=== PATIENT | female | born 1935 | race Hispanic/Latino ===

== ENCOUNTER → 2018-01-09 | Outpatient (CLI) | payer OTHER ==
--- NOTE | 2018-01-10 15:13 | Diagnostic Imaging Report ---
#[id number] - MGSCRBIL #BILATERAL DIGITAL SCREENING MAMMOGRAM WITH CAD: 01/09/2018 CLINICAL: Routine screening. Comparison is made to exam dated: 09/24/2014 mammogram - [facility]. Current study contains 4 films. The tissue of both breasts is heterogeneously dense. This may lower the sensitivity of mammography. Current study was also evaluated with a Computer Aided Detection (CAD) system. There are benign vascular calcifications and scattered benign calcifications in both breasts. No significant masses, calcifications or other findings are seen in either breast. There has been no significant interval change. IMPRESSION: BENIGN There is no mammographic evidence of malignancy. A 1 year screening mammogram is recommended. The patient will be notified by letter of the results. Bert Guido Jr., D.O. cw/:01/10/2018 10:42:42 Debt Counselor: Ana RAYA(R)(M), [facility] letter sent: Compared to Prior B9 Mammogram BI-RADS: 2 Benign
== END ==
LOC: MAMMO 07:53
PROVIDERS: ATTEND Internal Medicine
DX: Z12.31 Encounter for screening mammogram for malignant neoplasm of breast (principal)
CPT/HCPCS: 77067

== ENCOUNTER → 2019-02-12 | Outpatient (CLI) | payer MEDICARE, OTHER ==
[~2019-02-12] MED LIST: ASPIR 8181 MG PO; CLOPIDOGREL75 MG PO; GABAPENTIN100 MG PO; GLUCOSAMINE1000 MG PO; METFORMIN HCL1000 MG PO; METOLAZONE5 MG PO; MICARDIS40 MG PO; RESTASIS1 EACH OU; SIMVASTATIN40 MG PO; SPIRONOLACTONE25 MG PO; VITAMIN C500 MG PO
--- NOTE | 2019-02-13 17:02 | Diagnostic Imaging Report ---
Exam: Bone mineral density study. History: Osteoporosis, screening, calcium supplementation, history of surgery Comparison: September 24, 2014 Discussion: Evaluation of the left hip and lumbar spine was performed. The study is technically adequate. The patient's fracture risk is compared to an age-matched control. The patient denies prior surgery/fracture of the spine, hips or forearm. Left hip femoral neck bone mineral density: 0.9 g/cm2, T-score is 0.6, Z-score is 3. The left hip total bone mineral density is 1 g/cm2, the T-score is 0.5 and the total Z-score is 2.7. The BMD change versus baseline is - 5% (statistically significant). The lumbar spine total bone mineral density is 1.3 g/cm2, the T-score is 2.7, and the Z-score is 5.5. The BMD change versus baseline is + 16.2% (statistically significant). Impression: 1. Bone mineralization by WHO Classification is normal, the fracture risk is not increased. 2. The increase in bone mineral density of the lumbar spine may be artifactual secondary to increasing degenerative changes. If future bone densitometry is warranted, consider utilizing the left hip and a forearm for most accurate assessment. Signed by: Dr. Robb Ayala D.O., M.M.M. on 02/13/2019 4:59 PM
--- NOTE | 2019-02-18 08:21 | Diagnostic Imaging Report ---
#[id number] - MGSCRBIL #BILATERAL DIGITAL SCREENING MAMMOGRAM WITH CAD: 02/12/2019 CLINICAL: Routine screening. Comparison is made to exams dated: 01/09/2018 mammogram and 09/24/2014 mammogram - [facility]. The tissue of both breasts is heterogeneously dense. This may lower the sensitivity of mammography. Current study was also evaluated with a Computer Aided Detection (CAD) system. There are benign vascular calcifications and calcifications in both breasts. No significant masses, calcifications, or other findings are seen in either breast. There has been no significant interval change. IMPRESSION: BENIGN There is no mammographic evidence of malignancy. A 1 year screening mammogram is recommended. The patient will be notified by letter of the results. MARION BIRCH M.D., mc/sayra:02/15/2019 11:24:53 Overhead Garage Door Hanger: Ana RAYA(R)(M), [facility] letter sent: Normal Exam Mammogram BI-RADS: 2 Benign
== END ==
LOC: MAMMO 10:54
PROVIDERS: ATTEND Internal Medicine
DX: Z12.31 Encounter for screening mammogram for malignant neoplasm of breast (principal); M89.9 Disorder of bone, unspecified
CPT/HCPCS: 77067; 77080

== ENCOUNTER 2019-03-27 11:57 | Observation (INO) | payer MEDICARE, OTHER ==
[~2019-03-27] VITALS: Ht 137.2 cm; Wt 60.3 kg
--- OUTSIDE RECORDS SUMMARY | 2019-03-27 12:01 | XMS REPORT ---
Author [facility] Address Unknown Phone Unavailable Care Team Providers Care Director [employer] Name Role Phone DANYEL RCIO Unavailable Unavailable Payers Payer Name Policy Type Policy Number Effective Date Expiration Date Problems This patient has no known problems. Allergies, Adverse Reactions, Alerts Allergy Name Allergy Type Status Severity Reaction(s) Onset Date Inactive Date Treating Clinician Comments No Known Allergies DA Active U 2018-05-04 00:00:00 No Known Allergies DA Active U 2014-12-19 00:00:00 Medications This patient has no known medications. Results Test Description Test Time Test Comments Text Results Atomic Results Result Comments BONE DXA DUAL ENERGY 2019-02-13 16:56:00 [facility] [address] [address] Patient Name: KAMERON ACKERMAN MR #: [id number] : 1935 Age/Sex: 83/F Req #: [id number] [facility] Physician: Ordered by: DANYEL RICO MD Report #: [id number] Location: [facility] Room/Bed: Procedure: [id number] DX/BONE DXA DUAL ENERGY Exam Date: Exam Time: REPORT STATUS: Signed Exam: Bone mineral density study. History: Osteoporosis, sc reening, calcium supplementation, history of surgery Comparison: September 24, 2014 Discussion: Evaluation of the left hip and lumbar spine was performed. The study is technically adequate. The patient's fracture risk is compared to an age-matched control. The patient denies prior surgery/fracture of the spine, hips or forearm. Left hip femoral neck bone mineral density: 0.9 g/cm2, T-score is 0.6, Z-score is 3. The left hip total bone mineral density is 1 g/cm2, the T-score is 0.5 and the total Z- score is 2.7. The BMD change versus baseline is - 5% (statistically sig nificant). The lumbar spine total bone mineral density is 1.3 g/cm2, the T- score is 2.7, and the Z-score is 5.5. The BMD change versus baseline is + 16.2% (statistically significant). Impression: 1. Bone mineralization by WHO Classification is normal, the fracture risk is not increased. 2. The increase in bone mineral density of the lumbar spine may be artifactual secondary to increasing degenerative changes. If future bone densitometry is warranted, consider utilizing the left hip and a forearm for most accurate assessment. Signed by: Dr. Robb Ayala D.O., M.M.M. on 02/13/2019 4:59 PM Dictated By: ROBB AYALA DO 58 Transcribed By: BENI on 02/13/191658 COPY TO: DANYEL RICO MD MAMMOGRAPHY DIGITAL SCR BILAT 2019-02-12 12:44:00 [address] [address] Patient Name: KAMERON ACKERMAN MR #: [id number] : 1935 Age/Sex: 83/F Req #: [id number] [facility] Physician: Ordered by: DANYEL RICO MD Report #: [id number] Location: MAMMO Room/Bed: Procedure: [id number] MG/MAMMOGRAPHY DIGITAL SCR BILAT Exam Date: 02/12/19 Exam Time: 1100 REPORT STATUS: Signed #[id number] - MGSCRBIL #BILATERAL DIGITAL SCREENING MAMMOGRAM WITH CAD: 02/12/2019 CLINICAL: Routine screening. Comparison is made to exams dated: 01/09/2018 mammogram and 09/24/2014 mammogram - [facility]. The tissue of both breasts is heterogeneously dense. This may lower the sensitivity of mammography. Current study was also evaluated with a Computer Aided Detection (CAD) system. There are benign vascular calcifications and calcifications in both breasts. No significant masses, calcifications, or other findings are seen in either breast. There has been no significant interval change. IMPRESSION: BENIGN There is no mammographic evidence of malignancy. A 1 year screening mammogram is recommended. The patient will be notified by letter of the results. MARION BIRCH M.D., mc/sayra:02/15/2019 11:24:53 Employment Director: Ana RAYA(R)(M), [facility] letter sent: Normal Exam Mammogram BI-RADS: 2 Benign Dictated By: ROYCE BIRCH MD Transcribed By: SAYRA on 02/15/191123 COPY TO: DANYEL RICO MD URINALYSIS COMPLETE 2018-09-25 15:10:00 UA COLOR (test code=COLU) YELLOW YELLOW UA APPEARANCE (test code=APPU) CLEAR CLEAR UA GLUCOSE DIPSTICK (test code=DGLUU) 1000(3+) mg/dL NEGATIVE UA BILIRUBIN DIPSTICK (test code=BILU) NEGATIVE mg/dL NEGATIVE UA KETONE DIPSTICK (test code=KETU) neg mg/dL NEGATIVE UA SPECIFIC GRAVITY (test code=SGU) 1.015 1.001-1.035 UA BLOOD DIPSTICK (test code=CURTIS) neg Noé/uL NEGATIVE UA PH DIPSTICK (test code=DERRELL) 5.0 5.0-8.0 UA PROTEIN DIPSTICK (test code=PROU) neg mg/dL Neg-15 UA UROBILINIOGEN DIPSTICK (test code=URO) norm mg/dL 0.0-0.2 UA NITRITE DIPSTICK (test code=HEIDY) NEGATIVE NEGATIVE UA LEUKOCYTE ESTERASE DIPSTICK (test code=LEUU) 25 (Trace) uL NEGATIVE UA WBC (test code=WBCU) NONE SEEN per HPF 0-5 IN SOME URINARY TRACT INFECTIONS THERE MAY NOT BE ENOUGHWBCs IN THE URINE TO TRIGGER AN AUTOMATIC (REFLEX) URINECULTURE. A SEPERATE ORDER FOR URINE CULTURE IS RECOMMENDEDIF THERE IS STRONG SUPPORT FOR A URINARY TRACT INFECTIONCLINICALLY. UA RBC (test code=RBCU) NONE SEEN per HPF 0-5 UA EPITHELIAL CELLS (test code=EPIU) Rare (0-1/hpf) per HPF Few UA BACTERIA (test code=BACU) TRACE per HPF NONE Urine Source? Clean [id number] 15:07:00* Test Item Value Reference Range Comments GLUBED (test code=GLUBED) 161 mg/dL 74-106 Performed by certified carnallite plant operator at [facility] URINALYSIS [id number] 15:04:00* Test Item Value Reference Range Comments UA COLOR (test code=COLU) YELLOW YELLOW UA APPEARANCE (test code=APPU) CLEAR UA GLUCOSE DIPSTICK (test code=DGLUU) 1000(3+) mg/dL NEGATIVE UA BILIRUBIN DIPSTICK (test code=BILU) NEGATIVE mg/dL NEGATIVE UA KETONE DIPSTICK (test code=KETU) neg mg/dL NEGATIVE UA SPECIFIC GRAVITY (test code=SGU) 1.015 1.001-1.035 UA BLOOD DIPSTICK (test code=CURTIS) neg Noé/uL NEGATIVE UA PH DIPSTICK (test code=DERRELL) 5.0 5.0-8.0 UA PROTEIN DIPSTICK (test code=PROU) neg mg/dL Neg-15 UA UROBILINIOGEN DIPSTICK (test code=URO) norm mg/dL 0.0-0.2 UA NITRITE DIPSTICK (test code=HEIDY) NEGATIVE NEGATIVE UA LEUKOCYTE ESTERASE DIPSTICK (test code=LEUU) 25 (Trace) uL NEGATIVE UA WBC (test code=WBCU) per HPF 0-5 Urine Source? Clean [id number] 14:30:00* Test Item Value Reference Range Comments GLYCOSYLATED HEMOGLOBIN (HA1C) (test code=GLYHGB) 8.4 % 4.5-6.2 ESTIMATED AVERAGE GLUCOSE (test code=EAG) 194 MG/DL BASIC METABOLIC [id number] 14:29:00* Test Item Value Reference Range Comments SODIUM (test code=NA) 142 mmol/L 135-148 POTASSIUM (test code=K) 4.7 mmol/L 3.5-5.1 CHLORIDE (test code=CL) 105 mmol/L 101-109 CARBON DIOXIDE (test code=CO2) 23.4 mmol/L 21-32 ANION GAP (test code=GAP) 18 mmol/L 10-20 GLUCOSE (test code=GLU) 256 mg/dL 74-106 BLOOD UREA NITROGEN (test code=BUN) 28 mg/dL 3-21 GLOMERULAR FILTRATION RATE (test code=GFR) 46 mL/min >=60 Estimated GFR by using Modified MDRD formula.Chronic kidney disease is defined as either kidney damageor GFR <60 mL/min/1.73 m2 for >3 months. CREATININE (test code=CREAT) 1.12 mg/dL 0.55-1.3 BUN/CREATININE RATIO (test code=BUN/CREA) 25.0 10-20 CALCIUM (test code=CA) 9.3 mg/dL 8.4-10.2 HEPATIC FUNCTION [id number] 14:29:00* Test Item Value Reference Range Comments TOTAL PROTEIN (test code=PROT) 7.1 g/dL 6.5-8.4 ALBUMIN (test code=ALB) 3.7 g/dL 3.4-4.8 GLOBULIN (test code=GLOB) 3.4 G/DL 1-10 ALBUMIN/GLOBULIN RATIO (test code=A/G) 1.1 RATIO 0.75-1.50 BILIRUBIN TOTAL (test code=BILT) 0.30 mg/dL 0.0-1.0 BILIRUBIN DIRECT (test code=BILD) 0.10 mg/dL 0.0-0.30 SGOT/AST (test code=AST) 16 U/L 6-32 SGPT/ALT (test code=ALT) 20 U/L 12-78 Note: Change in REFERENCE RANGE due to new reagent method. ALKALINE PHOSPHATASE TOTAL (test code=ALKP) 117 U/L 38-126 [id number] 14:29:00* Test Item Value Reference Range Comments LIPASE (test code=LIP) 245 U/L 128-270 [id number] 14:29:00* Test Item Value Reference Range Comments TROPONIN-I (test code=TROPI) <0.015 ng/mL 0.00-0.056 BASIC METABOLIC [id number] 14:24:00* Test Item Value Reference Range Comments SODIUM (test code=NA) 142 mmol/L 135-148 POTASSIUM (test code=K) 4.7 mmol/L 3.5-5.1 CHLORIDE (test code=CL) 105 mmol/L 101-109 CARBON DIOXIDE (test code=CO2) 23.4 mmol/L 21-32 ANION GAP (test code=GAP) 18 mmol/L 10-20 GLUCOSE (test code=GLU) 256 mg/dL 74-106 BLOOD UREA NITROGEN (test code=BUN) 28 mg/dL 3-21 GLOMERULAR FILTRATION RATE (test code=GFR) 46 mL/min >=60 Estimated GFR by using Modified MDRD formula.Chronic kidney disease is defined as either kidney damageor GFR <60 mL/min/1.73 m2 for >3 months. CREATININE (test code=CREAT) 1.12 mg/dL 0.55-1.3 BUN/CREATININE RATIO (test code=BUN/CREA) 25.0 10-20 CALCIUM (test code=CA) 9.3 mg/dL 8.4-10.2 HEPATIC FUNCTION [id number] 14:24:00* Test Item Value Reference Range Comments TOTAL PROTEIN (test code=PROT) gram/dL 6.4-8.2 ALBUMIN (test code=ALB) g/dL 3.4-5.0 GLOBULIN (test code=GLOB) g/dL 2.7-4.2 ALBUMIN/GLOBULIN RATIO (test code=A/G) 0.75-1.50 BILIRUBIN TOTAL (test code=BILT) mg/dL 0.2-1.2 BILIRUBIN DIRECT (test code=BILD) mg/dL 0.0-0.20 SGOT/AST (test code=AST) IUnit/L 15-37 SGPT/ALT (test code=ALT) U/L 10-69 ALKALINE PHOSPHATASE TOTAL (test code=ALKP) IUnit/L 45-117 [id number] 14:24:00* Test Item Value Reference Range Comments LIPASE (test code=LIP) Unit/L 144-286 [id number] 14:24:00* Test Item Value Reference Range Comments TROPONIN-I (test code=TROPI) ng/mL 0-0.045 CBC W/O [id number] 13:58:00* Test Item Value Reference Range Comments WHITE BLOOD CELL (test code=WBC) 6.4 K/mm3 4.5-12.5 RED BLOOD CELL (test code=RBC) 3.91 mill/mm3 3.7-5.2 HEMOGLOBIN (test code=HGB) 12.1 gram/dL 11.5-15.5 HEMATOCRIT (test code=HCT) 35.4 % 36.0-46.0 MEAN CELL VOLUME (test code=MCV) 90.5 fL 80-98 MEAN CELL HGB (test code=MCH) 30.9 picogram 27.0-33.0 MEAN CELL HGB CONCETRATION (test code=MCHC) 34.2 gram/dL 33.0-36.0 RED CELL DISTRIBUTION WIDTH (test code=RDW) 12.9 % 11.6-16.2 RED CELL DISTRIBUTION WIDTH SD (test code=RDW-SD) 42.0 fL 39.1-52.0 PLATELET COUNT (test code=PLT) 248 K/mm3 150-450 MEAN PLATELET VOLUME (test code=MPV) 9.7 fL 6.7-11.0 [id number] 13:44:00* Test Item Value Reference Range Comments GLUBED (test code=GLUBED) 236 mg/dL 74-106 Performed by certified carnallite plant operator at [facility]Doctor Notified~ MAMMOGRAPHY DIGITAL SCR [id number] 08:43:00 [facility] [address] [address] Patient Name: KAMERON ACKERMAN MR #: [id number] : 1935 Age/Sex: 82/F Req #: [id number] Adm Physician: Ordered by: DANYEL RICO MD Report #: [id number] Location: MAMMO Room/Bed: Procedure: MG/MAMMOGRAPHY DIGITAL SCR BILAT Exam Date: 01/09/18 Exam Time: 0820 REP ORT STATUS: Signed #[id number] - MGSCRBIL #BILATERAL DIGITAL SCREENIN G MAMMOGRAM WITH CAD: 01/09/2018 CLINICAL: Routine screening. Comparison is made to exam dated: 09/24/2014 mammogram - [facility]. Current study contains 4 films. The tissue of both breasts is heterog eneously dense. This may lower the sensitivity of mammography. Current st udy was also evaluated with a Computer Aided Detection (CAD) system. There a re benign vascular calcifications and scattered benign calcifications in both br easts. No significant masses, calcifications or other findings are seen in e ither breast. There has been no significant interval change. IMPRESSION : BENIGN There is no mammographic evidence of malignancy. A 1 year screening mammogram is recommended. The patient will be notified by letter of the resul theresa. Bert Guido Jr., D.O. cw/:01/10/2018 10:42:42 [employer]well Technologist: Ana Ayala RT(R)(Ra), [facility] letter sent: Compared to Prior B9 Mammogram BI-RADS: 2 Benign Dictated By: BERT GUIDO DO 1 042 Transcribed By: SAYRA on 01/10/18 1042 COPY TO: DANYEL RICO MD
[2019-03-27] MEDS ORDERED: ASPIRIN 81 MG CHEW TAB PO ONE ×2 (12:15→14:15)
[2019-03-27 12:42] LABS: BASOPHILS % 0.5 % (0.0-1.0); EOSINOPHILS # (AUTO) 0.2 (0.0-0.4); EOSINOPHILS % 2.3 % (0.0-6.0); HEMATOCRIT 32.2 % (34.2-44.1); HEMOGLOBIN 10.9 g/dL (12.0-16.0); LYMPHOCYTES # (AUTO) 1.7 (1.0-3.2); LYMPHOCYTES % 25.9 % (18.0-39.1); MEAN CORPUSCULAR HEMOGLOBIN 30.8 pg (28-32); MEAN CORPUSCULAR HGB CONC 33.9 g/dL (31-35); MONOCYTES # (AUTO) 0.4 (0.2-0.8); MONOCYTES % 6.7 % (4.4-11.3); NEUTROPHILS # (AUTO) 4.2 (2.1-6.9); NEUTROPHILS % 64.1 % (38.7-80.0); PLATELET COUNT 248 x10e3/uL (140-360); RED BLOOD COUNT 3.54 x10e6/uL (3.6-5.1); RED CELL DISTRIBUTION WIDTH 12.3 % (11.7-14.4)
[2019-03-27 12:53] LABS: INR 0.92; PARTIAL THROMBOPLASTIN TIME 29.8 seconds (23.8-35.5); PROTHROMBIN TIME 12.9 seconds (11.9-14.5)
[2019-03-27 13:02] LABS: ALBUMIN 3.7 g/dL (3.5-5.0); ALBUMIN/GLOBULIN RATIO 1.2 (0.8-2.0); CALCIUM 10.1 mg/dL (8.4-10.2); CREATININE, SERUM 1.18 mg/dL (0.57-1.11)
[2019-03-27 13:09] LABS: CREATINE KINASE MB 4.7 ng/mL (0-5.0)
[2019-03-27] MEDS ORDERED: DEXTROSE 50% SYRINGE 50 ML IV PRN (14:15)
[2019-03-27] MEDS ORDERED: ONDANSETRON HCL INJ 2MG/ML 2ML 2 MG/ML VIAL IV PRN (14:15)
--- NOTE | 2019-03-27 14:17 | Diagnostic Imaging Report ---
EXAMINATION: CHEST SINGLE (PORTABLE) INDICATION: Chest pain COMPARISON: None FINDINGS: LINES/TUBES:EKG leads overlie the chest. LUNGS:The lungs are well-inflated. No focal consolidation or pulmonary edema. PLEURA:No pleural effusion or pneumothorax. MEDIASTINUM:The cardiomediastinal silhouette appears normal in size and shape. Atherosclerotic calcifications of the thoracic aorta. Vascular stent overlies the right lung apex. BONES/SOFT TISSUES:No acute osseous injury. ABDOMEN:No free air under the diaphragm. IMPRESSION: No focal pneumonia or pulmonary edema. Signed by: Louise Singh MD on 03/27/2019 2:14 PM
--- NOTE | 2019-03-27 17:40 | NUR ---
DR. JORDAN AT BEDSIDE FOR PT EVAL AT THIS TIME
[2019-03-27] MEDS: INSULIN REGULAR, HUMAN 100 UNIT/1 ML 3ML VIAL SQ SCH ×2 (18:01→20:58)
--- NOTE | 2019-03-27 19:03 | NUR ---
REPORT GIVEN TO SYED PERSAUD
--- NOTE | 2019-03-27 19:07 | NUR ---
RECEIVED PATIENT VIA STRETCHER ALERT AND ORIENTED. TRANSFERRED TO BED. ORIENTED TO ROOM. CALL LIGHT WITHIN REACHED.
[2019-03-27] MEDS ORDERED: VITAMIN C500 MG PO (19:41)
[2019-03-27] MEDS ORDERED: METFORMIN HCL1000 MG PO (19:41)
[2019-03-27] MEDS ORDERED: GLUCOSAMINE1000 MG PO (19:41)
[2019-03-27] MEDS ORDERED: CLOPIDOGREL75 MG PO (19:41)
[2019-03-27] MEDS ORDERED: SPIRONOLACTONE25 MG PO (19:41)
[2019-03-27] MEDS ORDERED: GABAPENTIN100 MG PO (19:41)
[2019-03-27] MEDS ORDERED: MICARDIS40 MG PO (19:41)
[2019-03-27] MEDS ORDERED: ASPIR 8181 MG PO (19:41)
[2019-03-27] MEDS ORDERED: RESTASIS1 EACH OU (19:41)
[2019-03-27] MEDS ORDERED: SIMVASTATIN40 MG PO (19:41)
[2019-03-27] MEDS ORDERED: METOLAZONE5 MG PO (19:41)
--- NOTE | 2019-03-27 19:48 | NUR ---
PT AWAKE ALERT SKIN W/D RESP NONLAB, NAD NOTED. MED REC COMPLETE WITH PATIENT AND FAMILY.
[2019-03-27 20:04] VITALS: BP 196/79
--- NOTE | 2019-03-27 20:59 | NUR ---
PATIENT STATES SHE CANNOT DO TREADMILL STRESS TEST BECAUSE SHE MIGHT PASS OUT. PAGED DR. CHOE. WAITING FOR RESPONSE.
[2019-03-27 21:01] VITALS: BP 196/79
--- NOTE | 2019-03-27 21:09 | NUR ---
BP RECHECKED 159/70 MMHG. MT 57 B/MIN. PT IS ASYMPTOMATIC.
[2019-03-27 21:12] LABS: CREATINE KINASE MB 3.9 ng/mL (0-5.0)
[2019-03-27 21:14] VITALS: BP 196/79
--- NOTE | 2019-03-27 23:30 | NUR ---
RN incinerator plant supervisor made aware of patient refusing treadmill stress test.
[2019-03-28] VITALS (8 sets, daily range): BP systolic 110–171; BP diastolic 50–86
--- NOTE | 2019-03-28 00:05 | NUR ---
Patient on NPO.
--- NOTE | 2019-03-28 00:49 | Consultation ---
DATE OF CONSULTATION: 03/27/2019 Cardiology Consultation REQUESTING PHYSICIAN: Gerda Nelson MD REASON FOR CONSULTATION: Chest pain. HISTORY OF PRESENT ILLNESS: This is an 84-year-old woman with history of diabetes mellitus, hypertension, carotid artery disease, status post right carotid stent in November 2017, peripheral arterial disease, who presents with complaints of chest pain. She reports stabbing chest pain around 11:00 a.m. today. She reports it was 10/10 in severity, lasting seconds at a time. There was no shortness of breath, nausea, or diaphoresis. The pain did not radiate. Due to her symptoms, she presented to the ER for further evaluation. REVIEW OF SYSTEMS: Negative except as per HPI. PAST MEDICAL HISTORY: 1. Diabetes mellitus. 2. Hypertension. 3. Carotid artery disease, status post right carotid artery stent in November 2017. 4. Peripheral arterial disease. PAST SURGICAL HISTORY: 1. section. 2. Appendectomy. 3. Hernia surgery. 4. Eye surgery. ALLERGIES: NO KNOWN DRUG ALLERGIES. MEDICATIONS: Please see medication list. SOCIAL HISTORY: Denies tobacco, alcohol, or illicit drugs. FAMILY HISTORY: Pertinent for family history of stroke. PHYSICAL EXAMINATION: VITAL SIGNS: Temperature 98.7 degrees, pulse 60, respiratory rate 20, blood pressure 158/95, and oxygen saturation 98% on room air. GENERAL: Awake, alert, elderly woman, no acute distress. HEENT: Normocephalic, atraumatic. Pupils equal. No scleral icterus. NECK: Supple. No thyromegaly or cervical lymphadenopathy. No carotid bruits. LUNGS: Clear to auscultation bilaterally. No wheezes or crackles. CARDIOVASCULAR: Normal rate, regular rhythm. No murmur. Normal S1, S2. ABDOMEN: Soft, nontender. EXTREMITIES: No edema. NEUROLOGIC: Nonfocal exam. LABORATORY DATA: WBC 6.46, hemoglobin 10.9, hematocrit 32.2, platelets 248. Sodium 137, potassium 5, chloride 105, CO2 of 22, BUN 22, creatinine 1.18. Troponin 0.009. BNP 56.7. EKG, normal sinus rhythm with premature atrial complexes. Chest x-ray, no focal pneumonia or pulmonary edema. IMPRESSION: 1. Chest pain. 2. Diabetes mellitus. 3. Hypertension. 4. Carotid artery disease, status post right carotid artery stent in November of 2017. 5. Peripheral arterial disease. RECOMMENDATIONS: Trend cardiac enzymes to rule out myocardial infarction. Fasting lipid panel. Obtain echocardiogram. Given risk factors, ischemic evaluation is indicated with nuclear stress test. Further recommendations pending test results. Continue home cardiac medications. Thank you for this consult. We will continue to follow. Leatha Molina MD ABS/MODL /[id number]
--- NOTE | 2019-03-28 05:53 | NUR ---
Hr rechecked 53 b/min asymptomatic.
--- NOTE | 2019-03-28 06:25 | NUR ---
Paged Dr. Bray regarding patient refusal for stress test treadmill. Dr. Carlisle certification technician. Message left via voicemail.
[2019-03-28 06:45] LABS: BASOPHILS % 0.6 % (0.0-1.0); EOSINOPHILS # (AUTO) 0.3 (0.0-0.4); EOSINOPHILS % 4.1 % (0.0-6.0); HEMATOCRIT 32.2 % (34.2-44.1); HEMOGLOBIN 10.7 g/dL (12.0-16.0); LYMPHOCYTES # (AUTO) 2.2 (1.0-3.2); LYMPHOCYTES % 30.6 % (18.0-39.1); MEAN CORPUSCULAR HEMOGLOBIN 30.2 pg (28-32); MEAN CORPUSCULAR HGB CONC 33.2 g/dL (31-35); MONOCYTES # (AUTO) 0.6 (0.2-0.8); NEUTROPHILS # (AUTO) 3.9 (2.1-6.9); NEUTROPHILS % 55.6 % (38.7-80.0); PLATELET COUNT 243 x10e3/uL (140-360); RED BLOOD COUNT 3.54 x10e6/uL (3.6-5.1); RED CELL DISTRIBUTION WIDTH 12.4 % (11.7-14.4)
--- NOTE | 2019-03-28 07:06 | NUR ---
RECEIVED PATIENT AWAKE SITTING AT SIDE OF BED. BED LOW, WHEELS LOCKED, SIDE RAILS X2. CALL LIGHT IN REACH WILL CONTINUE TO MONITOR PATIENT. PATIENT NPO FOR STRESS TEST TODAY.
[2019-03-28 07:16] LABS: CREATINE KINASE MB 2.4 ng/mL (0-5.0)
[2019-03-28] MEDS: INSULIN REGULAR, HUMAN 100 UNIT/1 ML 3ML VIAL SQ SCH ×3 (07:30→16:30)
[2019-03-28 07:40] LABS: ANION GAP 13.7 mmol/L (8-16); CALCIUM 9.7 mg/dL (8.4-10.2); CREATININE, SERUM 0.97 mg/dL (0.57-1.11); POTASSIUM 4.7 mmol/L (3.5-5.1)
[2019-03-28 07:54] LABS: CHOL/HDL RATIO 2.8 (3.0-3.6)
[2019-03-28] MEDS: ASPIRIN 325 MG TAB PO SCH ×2 (08:31→12:20)
--- NOTE | 2019-03-28 16:57 | Myoview Stress Test ---
DATE OF STUDY: 03/27/2019 17:31:00 Stress Test - Treadmill ONLY PROCEDURE TITLE: Rest/stress single isotope SPECT imaging with pharmacologic stress and gated SPECT imaging. INDICATION: Chest pain. PROCEDURE IN DETAIL: Pharmacologic stress testing was performed with regadenoson per protocol. The heart rate was 55 beats per minute at rest and increased to 81 beats per minute during the regadenoson infusion. The resting blood pressure was 109/70 mmHg and increased to 125/52 mmHg which is a normal response. The resting electrocardiogram demonstrated normal sinus rhythm. There were no ST-segment changes suggestive of myocardial ischemia. Next, myocardial perfusion imaging was performed at rest following the injection of 11 mCi of tetrofosmin. At peak pharmacologic effect, the patient was injected with 31 mCi of tetrofosmin. Gated post-stress tomographic imaging was performed. FINDINGS: The overall quality of the study is good. Left ventricular cavity is noted to be normal size on the rest and stress studies. SPECT images demonstrate homogeneous tracer distribution throughout the myocardium. Gated SPECT imaging reveals normal myocardial thickening and wall motion. The left ventricular ejection fraction is calculated to be greater than 70%. IMPRESSION: Myocardial perfusion imaging is normal. Overall left ventricular systolic function was normal without regional wall motion abnormalities. Leatha Molina MD ABS/MODL /[id number]
--- NOTE | 2019-03-28 17:20 | NUR ---
PAGED DR. JORDAN FOR DISCHARGE CLEARANCE. WAITING FOR CALL BACK AT THIS TIME.
--- NOTE | 2019-03-28 18:52 | NUR ---
SPOKE WITH DR. JORDAN. PATIENT CAN BE DISCHARGED FROM CARDIOLOGY STAND POINT.
--- NOTE | 2019-03-28 19:10 | NUR ---
REPORT TAKEN FROM SYED NORRIS.PT IS HAVING DINNER.STABLE CONDITION.PAGED TO REGARDING THE DISCHARGE.WAITING FOR THE REPLY.
--- NOTE | 2019-03-28 19:38 | Progress Note ---
DATE: 03/28/2019 SUBJECTIVE: The patient denies chest pain or shortness of breath. She was seen for nuclear stress test. OBJECTIVE: VITAL SIGNS: Temperature 97.3 degrees, pulse 94, respiratory rate 20, blood pressure 131/70, and oxygen saturation 99% on room air. GENERAL: Awake, alert, no acute distress. LUNGS: Clear to auscultation bilaterally. No wheezes or crackles. CARDIOVASCULAR: Normal rate. Regular rhythm. No murmur. Normal S1, S2. ABDOMEN: Soft, nontender. EXTREMITIES: No edema. CARDIAC MEDICATIONS: Aspirin 325 mg p.o. daily. LABORATORY DATA: WBC 7.03, hemoglobin 10.7, hematocrit 32.2, and platelets 243. Sodium 137, potassium 4.7, chloride 106, CO2 of 22, BUN 22, and creatinine 0.97. Troponin 0.009. Cholesterol 139, triglycerides 136, LDL 85, and HDL 63. Telemetry, sinus bradycardia. IMPRESSION: 1. Chest pain. 2. Diabetes mellitus. 3. Hypertension. 4. Carotid artery disease, status post right carotid artery stent in November 2017. 5. Peripheral arterial disease. RECOMMENDATIONS: The patient is ruled out for myocardial portion on serial cardiac biomarkers. Change simvastatin to atorvastatin given LDL is not at goal. Resume home cardiac medications otherwise, nuclear stress test was without evidence of ischemia. Thank you for this consult. We will continue to follow. Leatha Molina MD ABS/MODL /[id number]
--- NOTE | 2019-03-28 20:08 | NUR ---
PROVIDED WITH DISCHARGE SUMMORY AND EDUCATION INFORMED.PROVIDE WITH CONTACTS FOR FOLLOW UP APPOINTMENTS.EDUCATED THE PATIENT AND FAMILY THAT IN CASE OF CHEST PAIN HAPPEN GO TO NEAREST ER OR CALL 911.VERBALISED UNDERSTANDING.IV REMOVED AND APPLIED PRESSURE DRESSING.D/C TELE AND RETURNED TO THE DEPT.WHEELED OFF UNIT VIA WHEEL CHAIR FOR DISCHARGE.
[2019-03-28] MEDS ORDERED: ATORVASTATIN 40 MG TAB PO SCH (21:00)
[2019-03-28] MEDS ORDERED: ATORVASTATIN 20 MG TAB PO SCH (21:00)
== END 2019-03-28 20:03 | disposition home or self-care (01) ==
LOC: ER 11:57 → ERHOLD 14:50 → INTOOBSV 14:50 → MED/SURG 20:07
PROVIDERS: ADMIT Internal Medicine; ATTEND Internal Medicine
DX: R07.9 Chest pain, unspecified (principal); E11.9 Type 2 diabetes mellitus without complications; I10 Essential (primary) hypertension; I73.9 Peripheral vascular disease, unspecified; I65.29 Occlusion and stenosis of unspecified carotid artery; Z82.3 Family history of stroke; Z79.84 Long term (current) use of oral hypoglycemic drugs; Z79.82 Long term (current) use of aspirin
CPT/HCPCS: 36415 ×2; 71045; 78452; 80048; 80053; 80061; 82550 ×2; 82553 ×2; 82948 ×2; 83880; 84484 ×2; 85025 ×2; 85610; 85730; 93005; 93017; 96365; 99284; A9502; G0378 ×2; J1817

== ENCOUNTER → 2021-04-09 | Outpatient (CLI) | payer MEDICARE ==
[~2021-04-09] MED LIST changes: +AMLODIPINE BESYL5 MG PO; +GLYBURIDE5 MG PO; +HYDROCHLOROTHIA25 MG PO; +TYLENOL EXTRA500 MG PO; +VITAMIN D
== END ==
LOC: US 09:57
PROVIDERS: ATTEND Internal Medicine Nephrology
DX: N18.31 Chronic kidney disease, stage 3a (principal)
CPT/HCPCS: 76770; 76857

== ENCOUNTER → 2021-04-15 | Day surgery (SDC) | payer MEDICARE ==
[2021-04-13 10:39] LABS: BASOPHILS # (AUTO) 0.1 (0.0-0.1); BASOPHILS % 0.8 % (0.0-1.0); EOSINOPHILS # (AUTO) 0.5 (0.0-0.4); EOSINOPHILS % 6.3 % (0.0-6.0); HEMATOCRIT 34.5 % (34.2-44.1); HEMOGLOBIN 10.9 g/dL (12.0-16.0); LYMPHOCYTES % 25.9 % (18.0-39.1); MEAN CORPUSCULAR HEMOGLOBIN 28.6 pg (28-32); MEAN CORPUSCULAR HGB CONC 31.6 g/dL (31-35); MEAN CORPUSCULAR VOLUME 90.6 fL (81-99); MONOCYTES # (AUTO) 0.6 (0.2-0.8); MONOCYTES % 7.7 % (4.4-11.3); NEUTROPHILS # (AUTO) 4.6 (2.1-6.9); NEUTROPHILS % 58.5 % (38.7-80.0); PLATELET COUNT 339 x10e3/uL (140-360); RED BLOOD COUNT 3.81 x10e6/uL (3.6-5.1); RED CELL DISTRIBUTION WIDTH 12.9 % (11.7-14.4)
[~2021-04-15] MED LIST changes: +INSULIN REGULAR, HUMAN 100 UNIT/1 ML ONE
[2021-04-15 10:27] VITALS: BP 115/56
== END | disposition home or self-care (01) ==
LOC: OR 08:00
PROVIDERS: ATTEND Internal Medicine Gastroenterology
DX: K29.50 Unspecified chronic gastritis without bleeding (principal); Z71.3 Dietary counseling and surveillance; D64.9 Anemia, unspecified; E11.9 Type 2 diabetes mellitus without complications; I10 Essential (primary) hypertension; E66.3 Overweight; E78.00 Pure hypercholesterolemia, unspecified; Z01.810 Encounter for preprocedural cardiovascular examination; Z01.812 Encounter for preprocedural laboratory examination; Z20.822 Contact with and (suspected) exposure to COVID-19; Z79.02 Long term (current) use of antithrombotics/antiplatelets; Z79.82 Long term (current) use of aspirin; Z79.84 Long term (current) use of oral hypoglycemic drugs; Z68.29 Body mass index [BMI] 29.0-29.9, adult
CPT/HCPCS: 36415 ×2; 43239; 82948; 85025; 93005; U0002; J1817

== ENCOUNTER 2021-05-27 11:10 | Inpatient (IN) | payer MEDICARE, OTHER ==
[~2021-05-27] VITALS: Ht 139.7 cm; Wt 62.1 kg
[~2021-05-27 11:10] MED LIST changes: -INSULIN REGULAR, HUMAN 100 UNIT/1 ML ONE
[2021-05-27] MEDS ORDERED: Morphine 2mg Syringe 2 MG/ML SYR IV STA (11:32)
[2021-05-27] MEDS ORDERED: ONDANSETRON HCL INJ 2MG/ML 2ML 2 MG/ML VIAL IV STA (11:32)
[2021-05-27 12:00] LABS: BASOPHILS # (AUTO) 0.1 (0.0-0.1); BASOPHILS % 0.6 % (0.0-1.0); EOSINOPHILS # (AUTO) 0.2 (0.0-0.4); EOSINOPHILS % 2.2 % (0.0-6.0); HEMATOCRIT 30.8 % (34.2-44.1); HEMOGLOBIN 9.8 g/dL (12.0-16.0); LYMPHOCYTES # (AUTO) 1.7 (1.0-3.2); LYMPHOCYTES % 21.6 % (18.0-39.1); MEAN CORPUSCULAR HEMOGLOBIN 27.6 pg (28-32); MEAN CORPUSCULAR HGB CONC 31.8 g/dL (31-35); MEAN CORPUSCULAR VOLUME 86.8 fL (81-99); MONOCYTES # (AUTO) 0.9 (0.2-0.8); MONOCYTES % 11.6 % (4.4-11.3); NEUTROPHILS # (AUTO) 4.9 (2.1-6.9); NEUTROPHILS % 63.6 % (38.7-80.0); PLATELET COUNT 311 x10e3/uL (140-360); RED BLOOD COUNT 3.55 x10e6/uL (3.6-5.1); RED CELL DISTRIBUTION WIDTH 13.2 % (11.7-14.4)
[2021-05-27 12:08] LABS: INR 0.98; PROTHROMBIN TIME 13.8 seconds (11.9-14.5)
[2021-05-27 12:09] LABS: PARTIAL THROMBOPLASTIN TIME 29.7 seconds (23.8-35.5)
[2021-05-27 12:15] LABS: ALBUMIN 3.5 g/dL (3.5-5.0); ALKALINE PHOSPHATASE 110 IU/L (40-150); ANION GAP 17.4 mmol/L (8-16); BLOOD UREA NITROGEN 18 mg/dL (7-26); BUN/CREATININE RATIO 18 (6-25); CALCIUM 9.6 mg/dL (8.4-10.2); CARBON DIOXIDE 23 mmol/L (22-29); CHLORIDE 104 mmol/L (98-107); CREATINE KINASE 81 IU/L (29-168); CREATININE, SERUM 1.02 mg/dL (0.57-1.11); EST GLOMERULAR FILTRATION RATE 51 ML/MIN (60-); GLUCOSE 159 mg/dL (74-118); POTASSIUM 4.4 mmol/L (3.5-5.1); SODIUM 140 mmol/L (136-145)
[2021-05-27 12:20] LABS: ALANINE AMINOTRANSFERASE < 6 IU/L (0-55)
[2021-05-27 14:15] LABS: ERYTHROCYTE SEDIMENTATION RATE 74 mm/hr (0-20)
[2021-05-27 15:53] VITALS: BP 143/51
[2021-05-27 16:28] VITALS: BP 144/51
[2021-05-27] MEDS: ONDANSETRON HCL INJ 2MG/ML 2ML 2 MG/ML VIAL IV PRN ×2 (16:45→21:19)
[2021-05-27] MEDS: Morphine 2mg Syringe 2 MG/ML SYR IV PRN ×2 (16:45→21:19)
[2021-05-27] MEDS: SODIUM CHLORIDE 0.9% 1000ML 1,000 ML IV SCH (16:45)
[2021-05-27] MEDS ORDERED: DEXAMETHASONE SOD PHOS INJ 4 MG/ML SDV ONE (19:43)
[2021-05-27] MEDS ORDERED: POVIDONE IODINE 0.05% 0.05 % ML PO ONE (19:43)
[2021-05-27] MEDS ORDERED: PROPOFOL IV EMULSION 10 MG/ML 20 ML VIAL ONE (19:43)
[2021-05-27] MEDS ORDERED: ONDANSETRON HCL INJ 2MG/ML 2ML 2 MG/ML VIAL ONE (19:43)
[2021-05-27 20:00] VITALS: BP 124/54
[2021-05-27 20:20] VITALS: BP 124/54
[2021-05-27] MEDS ORDERED: HEPARIN SOD (PORCINE) 5,000 UNIT/ML VIAL SC ONE (20:30)
[2021-05-27 21:45] LABS: BODY FLUID APPEARANCE CLOUDY; BODY FLUID COLOR YELLOW
[2021-05-27 21:46] LABS: WBC,BODY FLUID 17319 cells/uL
[2021-05-27 21:47] LABS: BODY FLUID TYPE SYNOVIAL; RBC,BODY FLUID 500 cells/uL
[2021-05-27 22:06] LABS: LYMPHOCYTES,BODY FLUID 7 %; MONO/MACROPHG,BODY FLUID 2 %; NEUTROPHILS,BODY FLUID 91 %
[2021-05-28] VITALS: BP 124/47
[2021-05-28] MEDS: SODIUM CHLORIDE 0.9% 1000ML 1,000 ML IV SCH (03:00)
[2021-05-28] MEDS: Morphine 2mg Syringe 2 MG/ML SYR IV PRN ×4 (04:47→19:39)
[2021-05-28] MEDS: ONDANSETRON HCL INJ 2MG/ML 2ML 2 MG/ML VIAL IV PRN ×2 (04:47→19:39)
[2021-05-28 04:55] LABS: BASOPHILS # (AUTO) 0.1 (0.0-0.1); BASOPHILS % 0.7 % (0.0-1.0); EOSINOPHILS # (AUTO) 0.1 (0.0-0.4); EOSINOPHILS % 1.1 % (0.0-6.0); HEMATOCRIT 28.1 % (34.2-44.1); HEMOGLOBIN 8.8 g/dL (12.0-16.0); LYMPHOCYTES # (AUTO) 1.6 (1.0-3.2); LYMPHOCYTES % 20.9 % (18.0-39.1); MEAN CORPUSCULAR HEMOGLOBIN 27.3 pg (28-32); MEAN CORPUSCULAR HGB CONC 31.3 g/dL (31-35); MEAN CORPUSCULAR VOLUME 87.3 fL (81-99); MONOCYTES % 13.4 % (4.4-11.3); NEUTROPHILS # (AUTO) 4.8 (2.1-6.9); NEUTROPHILS % 63.6 % (38.7-80.0); PLATELET COUNT 262 x10e3/uL (140-360); RED BLOOD COUNT 3.22 x10e6/uL (3.6-5.1); RED CELL DISTRIBUTION WIDTH 13.2 % (11.7-14.4)
[2021-05-28 05:18] LABS: ALBUMIN/GLOBULIN RATIO 0.9 (0.8-2.0); ALKALINE PHOSPHATASE 86 IU/L (40-150); ANION GAP 13.1 mmol/L (8-16); BLOOD UREA NITROGEN 18 mg/dL (7-26); BUN/CREATININE RATIO 18 (6-25); CALCIUM 9.2 mg/dL (8.4-10.2); CARBON DIOXIDE 22 mmol/L (22-29); CHLORIDE 105 mmol/L (98-107); CREATININE, SERUM 0.98 mg/dL (0.57-1.11); EST GLOMERULAR FILTRATION RATE 54 ML/MIN (60-); GLUCOSE 180 mg/dL (74-118); POTASSIUM 4.1 mmol/L (3.5-5.1); SODIUM 136 mmol/L (136-145)
[2021-05-28 06:04] LABS: ALANINE AMINOTRANSFERASE < 6 IU/L (0-55)
[2021-05-28 08:00] VITALS: BP 157/58
[2021-05-28 08:08] VITALS: BP 157/58
[2021-05-28 12:00] VITALS: BP 151/63
[2021-05-28] MEDS ORDERED: ONDANSETRON HCL INJ 2MG/ML 2ML 2 MG/ML VIAL ONE ×2 (12:11→17:02)
[2021-05-28] MEDS ORDERED: DEXAMETHASONE SOD PHOS INJ 4 MG/ML SDV ONE (12:11)
[2021-05-28] MEDS ORDERED: SEVOFLURANE INHAL SOLN 250 ML PEN BTL ONE (12:11)
[2021-05-28] MEDS ORDERED: GLIPIZIDE5 MG PO (12:53)
[2021-05-28] MEDS ORDERED: LISINOPRIL5 MG PO (12:54)
[2021-05-28] MEDS ORDERED: FERROUS SULFAT325 MG PO (12:57)
[2021-05-28] MEDS ORDERED: OMEPRAZOLE40 MG PO (12:57)
[2021-05-28] MEDS ORDERED: MAGNESIUM OXID400 MG PO (12:57)
[2021-05-28] MEDS ORDERED: DICYCLOMINE HCL10 MG PO (12:57)
[2021-05-28] MEDS ORDERED: METHYLPREDNISOLONE SOD SUCC 40 MG/ML VIAL 1ML IV SCH (14:00)
[2021-05-28] MEDS ORDERED: Vancomycin IV 1 GM VIAL ONE ×2 (14:56→15:08)
[2021-05-28] MEDS ORDERED: SODIUM CHLORIDE 0.9% 100 ML ONE (15:11)
[2021-05-28] MEDS ORDERED: LIDOCAINE 1% W/EPINEPHRINE 20 ML VIAL ONE (15:19)
[2021-05-28] MEDS ORDERED: BUPIVACAINE 0.25% 30ML SDV ONE (15:19)
[2021-05-28] MEDS ORDERED: Morphine 2mg Syringe 2 MG/ML SYR ONE (15:42)
[2021-05-28] MEDS ORDERED: ACETAMINOPHEN 325 MG TAB PO PRN (16:00)
[2021-05-28] MEDS ORDERED: DEXTROSE 50% SYRINGE 50 ML IV PRN (16:00)
[2021-05-28] MEDS: INSULIN LISPRO 100 UNIT/1 ML 3ML VIAL SQ SCH ×2 (16:30→21:39)
[2021-05-28 16:56] LABS: BODY FLUID APPEARANCE CLOUDY; BODY FLUID COLOR YELLOW; BODY FLUID TYPE SYNOVIAL
[2021-05-28 17:00] VITALS: BP 147/78
[2021-05-28 17:01] LABS: WBC,BODY FLUID 30878 cells/uL
[2021-05-28 17:02] LABS: RBC,BODY FLUID 5000 cells/uL
[2021-05-28] MEDS: LISINOPRIL 2.5 MG TAB PO SCH (18:09)
[2021-05-28] MEDS: METHYLPREDNISOLONE SOD SUCC 40 MG/ML VIAL 1ML IV SCH (18:09)
[2021-05-28 19:07] LABS: ANION GAP 16.6 mmol/L (8-16); CALCIUM 8.7 mg/dL (8.4-10.2); CREATININE, SERUM 0.87 mg/dL (0.57-1.11); POTASSIUM 4.6 mmol/L (3.5-5.1)
[2021-05-28 20:00] VITALS: BP 131/65
[2021-05-28] MEDS: GABAPENTIN 300 MG CAP PO SCH (21:45)
[2021-05-28] MEDS: DICYCLOMINE HCL 10 MG CAP PO SCH (21:45)
[2021-05-29] VITALS: BP 111/55
[2021-05-29] MEDS: METHYLPREDNISOLONE SOD SUCC 40 MG/ML VIAL 1ML IV SCH ×3 (02:04→16:54)
[2021-05-29 04:00] VITALS: BP 112/57
[2021-05-29 05:31] LABS: BASOPHILS % 0.2 % (0.0-1.0); HEMATOCRIT 26.8 % (34.2-44.1); HEMOGLOBIN 8.4 g/dL (12.0-16.0); LYMPHOCYTES # (AUTO) 0.7 (1.0-3.2); LYMPHOCYTES % 8.1 % (18.0-39.1); MEAN CORPUSCULAR HEMOGLOBIN 27.6 pg (28-32); MEAN CORPUSCULAR HGB CONC 31.3 g/dL (31-35); MEAN CORPUSCULAR VOLUME 88.2 fL (81-99); MONOCYTES # (AUTO) 0.4 (0.2-0.8); MONOCYTES % 3.8 % (4.4-11.3); NEUTROPHILS % 87.2 % (38.7-80.0); PLATELET COUNT 234 x10e3/uL (140-360); RED BLOOD COUNT 3.04 x10e6/uL (3.6-5.1); RED CELL DISTRIBUTION WIDTH 13.1 % (11.7-14.4)
[2021-05-29 05:55] LABS: ANION GAP 16.2 mmol/L (8-16); CALCIUM 8.8 mg/dL (8.4-10.2); CREATININE, SERUM 1.02 mg/dL (0.57-1.11); POTASSIUM 5.2 mmol/L (3.5-5.1)
[2021-05-29] MEDS: INSULIN LISPRO 100 UNIT/1 ML 3ML VIAL SQ SCH ×4 (07:30→20:43)
[2021-05-29 08:23] VITALS: BP 136/59
[2021-05-29] MEDS: GABAPENTIN 300 MG CAP PO SCH ×3 (08:43→20:42)
[2021-05-29] MEDS: MAGNESIUM OXIDE 400 MG TAB PO SCH (08:43)
[2021-05-29] MEDS: ASPIRIN 81 MG CHEW TAB PO SCH (08:43)
[2021-05-29] MEDS: DICYCLOMINE HCL 10 MG CAP PO SCH ×3 (08:43→20:42)
[2021-05-29] MEDS: Morphine 2mg Syringe 2 MG/ML SYR IV PRN ×2 (08:43→13:26)
[2021-05-29] MEDS: FERROUS SULFATE 325 MG TAB PO SCH (08:43)
[2021-05-29] MEDS: PANTOPRAZOLE SOD 40 MG TABEC PO SCH (08:43)
[2021-05-29] MEDS: LISINOPRIL 2.5 MG TAB PO SCH (08:43)
[2021-05-29 08:44] VITALS: BP 136/59
[2021-05-29] MEDS ORDERED: TELMISARTAN 40 MG TAB PO SCH (09:00)
[2021-05-29] MEDS: CEFTRIAXONE 1 GM in SODIUM CHLORIDE 0.9% 50ML 50 ML IV SCH (12:29)
[2021-05-29] MEDS: ENOXAPARIN SOD INJ 40 MG/0.4 ML SYR SC SCH (16:32)
[2021-05-29 20:00] VITALS: BP 116/52
[2021-05-29] MEDS: SIMVASTATIN 40 MG TAB PO SCH (20:42)
[2021-05-29 21:06] VITALS: BP 116/52
[2021-05-30] VITALS (8 sets, daily range): BP systolic 105–150; BP diastolic 48–71
[2021-05-30] MEDS: METHYLPREDNISOLONE SOD SUCC 40 MG/ML VIAL 1ML IV SCH ×3 (02:00→17:08)
[2021-05-30 07:09] LABS: BASOPHILS % 0.1 % (0.0-1.0); HEMATOCRIT 25.7 % (34.2-44.1); HEMOGLOBIN 8.4 g/dL (12.0-16.0); LYMPHOCYTES # (AUTO) 0.7 (1.0-3.2); LYMPHOCYTES % 5.5 % (18.0-39.1); MEAN CORPUSCULAR HEMOGLOBIN 27.8 pg (28-32); MEAN CORPUSCULAR HGB CONC 32.7 g/dL (31-35); MEAN CORPUSCULAR VOLUME 85.1 fL (81-99); MONOCYTES # (AUTO) 0.6 (0.2-0.8); MONOCYTES % 4.2 % (4.4-11.3); NEUTROPHILS # (AUTO) 12.1 (2.1-6.9); NEUTROPHILS % 89.7 % (38.7-80.0); PLATELET COUNT 285 x10e3/uL (140-360); RED BLOOD COUNT 3.02 x10e6/uL (3.6-5.1); RED CELL DISTRIBUTION WIDTH 13.3 % (11.7-14.4)
[2021-05-30] MEDS: INSULIN LISPRO 100 UNIT/1 ML 3ML VIAL SQ SCH ×4 (07:38→21:32)
[2021-05-30] MEDS: PANTOPRAZOLE SOD 40 MG TABEC PO SCH (08:33)
[2021-05-30] MEDS: LISINOPRIL 2.5 MG TAB PO SCH (08:33)
[2021-05-30] MEDS: FERROUS SULFATE 325 MG TAB PO SCH (08:33)
[2021-05-30] MEDS: GABAPENTIN 300 MG CAP PO SCH ×3 (08:33→21:31)
[2021-05-30] MEDS: DICYCLOMINE HCL 10 MG CAP PO SCH ×3 (08:33→21:31)
[2021-05-30] MEDS: ASPIRIN 81 MG CHEW TAB PO SCH (08:33)
[2021-05-30] MEDS: MAGNESIUM OXIDE 400 MG TAB PO SCH (08:33)
[2021-05-30] MEDS: CEFTRIAXONE 1 GM in SODIUM CHLORIDE 0.9% 50ML 50 ML IV SCH (08:44)
[2021-05-30] MEDS: ENOXAPARIN SOD INJ 40 MG/0.4 ML SYR SC SCH (16:54)
[2021-05-30] MEDS: SIMVASTATIN 40 MG TAB PO SCH (21:31)
[2021-05-31] VITALS (8 sets, daily range): BP systolic 124–164; BP diastolic 55–93
[2021-05-31] MEDS: METHYLPREDNISOLONE SOD SUCC 40 MG/ML VIAL 1ML IV SCH ×3 (03:21→16:51)
[2021-05-31 04:38] LABS: LYMPHOCYTES,BODY FLUID 8 %; MONO/MACROPHG,BODY FLUID 2 %; NEUTROPHILS,BODY FLUID 90 %
[2021-05-31 05:13] LABS: BASOPHILS % 0.1 % (0.0-1.0); HEMOGLOBIN 8.5 g/dL (12.0-16.0); LYMPHOCYTES # (AUTO) 0.6 (1.0-3.2); LYMPHOCYTES % 4.5 % (18.0-39.1); MEAN CORPUSCULAR HEMOGLOBIN 27.3 pg (28-32); MEAN CORPUSCULAR HGB CONC 31.5 g/dL (31-35); MEAN CORPUSCULAR VOLUME 86.8 fL (81-99); MONOCYTES # (AUTO) 0.6 (0.2-0.8); MONOCYTES % 4.8 % (4.4-11.3); NEUTROPHILS # (AUTO) 11.8 (2.1-6.9); PLATELET COUNT 314 x10e3/uL (140-360); RED BLOOD COUNT 3.11 x10e6/uL (3.6-5.1); RED CELL DISTRIBUTION WIDTH 13.6 % (11.7-14.4)
[2021-05-31] MEDS: Morphine 2mg Syringe 2 MG/ML SYR IV PRN ×3 (06:31→16:51)
[2021-05-31] MEDS: INSULIN LISPRO 100 UNIT/1 ML 3ML VIAL SQ SCH ×4 (08:15→20:42)
[2021-05-31] MEDS: ASPIRIN 81 MG CHEW TAB PO SCH (08:16)
[2021-05-31] MEDS: FERROUS SULFATE 325 MG TAB PO SCH (08:16)
[2021-05-31] MEDS: MAGNESIUM OXIDE 400 MG TAB PO SCH (08:16)
[2021-05-31] MEDS: DICYCLOMINE HCL 10 MG CAP PO SCH ×3 (08:16→20:31)
[2021-05-31] MEDS: PANTOPRAZOLE SOD 40 MG TABEC PO SCH (08:17)
[2021-05-31] MEDS: LISINOPRIL 2.5 MG TAB PO SCH (08:17)
[2021-05-31] MEDS: GABAPENTIN 300 MG CAP PO SCH ×3 (08:17→20:31)
[2021-05-31] MEDS: CEFTRIAXONE 1 GM in SODIUM CHLORIDE 0.9% 50ML 50 ML IV SCH (08:21)
[2021-05-31] MEDS ORDERED: ONDANSETRON HCL 4 MG ORAL DISINTEGRATING TAB PO PRN (08:30)
[2021-05-31] MEDS: ENOXAPARIN SOD INJ 40 MG/0.4 ML SYR SC SCH (16:51)
[2021-05-31] MEDS: SIMVASTATIN 40 MG TAB PO SCH (20:31)
[2021-06-01] VITALS (8 sets, daily range): BP systolic 116–145; BP diastolic 51–73
[2021-06-01] MEDS: METHYLPREDNISOLONE SOD SUCC 40 MG/ML VIAL 1ML IV SCH ×2 (01:59→08:08)
[2021-06-01 06:07] LABS: BASOPHILS % 0.1 % (0.0-1.0); HEMOGLOBIN 8.4 g/dL (12.0-16.0); LYMPHOCYTES # (AUTO) 0.7 (1.0-3.2); LYMPHOCYTES % 5.9 % (18.0-39.1); MEAN CORPUSCULAR HEMOGLOBIN 27.6 pg (28-32); MEAN CORPUSCULAR HGB CONC 32.3 g/dL (31-35); MEAN CORPUSCULAR VOLUME 85.5 fL (81-99); MONOCYTES # (AUTO) 0.4 (0.2-0.8); MONOCYTES % 3.4 % (4.4-11.3); NEUTROPHILS # (AUTO) 10.7 (2.1-6.9); NEUTROPHILS % 89.8 % (38.7-80.0); PLATELET COUNT 339 x10e3/uL (140-360); RED BLOOD COUNT 3.04 x10e6/uL (3.6-5.1); RED CELL DISTRIBUTION WIDTH 13.6 % (11.7-14.4)
[2021-06-01 06:13] LABS: ANION GAP 13.8 mmol/L (8-16); CALCIUM 7.8 mg/dL (8.4-10.2); CREATININE, SERUM 1.15 mg/dL (0.57-1.11); POTASSIUM 4.8 mmol/L (3.5-5.1)
[2021-06-01] MEDS: FERROUS SULFATE 325 MG TAB PO SCH (08:07)
[2021-06-01] MEDS: ASPIRIN 81 MG CHEW TAB PO SCH (08:07)
[2021-06-01] MEDS: DICYCLOMINE HCL 10 MG CAP PO SCH ×3 (08:07→21:03)
[2021-06-01] MEDS: MAGNESIUM OXIDE 400 MG TAB PO SCH (08:08)
[2021-06-01] MEDS: LISINOPRIL 2.5 MG TAB PO SCH (08:08)
[2021-06-01] MEDS: PANTOPRAZOLE SOD 40 MG TABEC PO SCH (08:08)
[2021-06-01] MEDS: GABAPENTIN 300 MG CAP PO SCH ×3 (08:08→21:02)
[2021-06-01] MEDS: INSULIN LISPRO 100 UNIT/1 ML 3ML VIAL SQ SCH ×4 (08:08→21:01)
[2021-06-01] MEDS: CEFTRIAXONE 1 GM in SODIUM CHLORIDE 0.9% 50ML 50 ML IV SCH (08:10)
[2021-06-01] MEDS: Morphine 2mg Syringe 2 MG/ML SYR IV PRN ×2 (08:10→12:30)
[2021-06-01] MEDS ORDERED: INSULIN LISPRO 100 UNIT/1 ML 3ML VIAL SQ ONE (13:45)
[2021-06-01] MEDS: ENOXAPARIN SOD INJ 40 MG/0.4 ML SYR SC SCH (16:11)
[2021-06-01] MEDS: SIMVASTATIN 40 MG TAB PO SCH (21:02)
[2021-06-02] VITALS (10 sets, daily range): BP systolic 126–149; BP diastolic 49–73
[2021-06-02 05:04] LABS: HEMATOCRIT 26.5 % (34.2-44.1); HEMOGLOBIN 8.3 g/dL (12.0-16.0); MEAN CORPUSCULAR HEMOGLOBIN 27.8 pg (28-32); MEAN CORPUSCULAR HGB CONC 31.3 g/dL (31-35); MEAN CORPUSCULAR VOLUME 88.6 fL (81-99); PLATELET COUNT 342 x10e3/uL (140-360); RED BLOOD COUNT 2.99 x10e6/uL (3.6-5.1); RED CELL DISTRIBUTION WIDTH 13.7 % (11.7-14.4)
[2021-06-02 05:28] LABS: ANION GAP 12.2 mmol/L (8-16); CALCIUM 8.1 mg/dL (8.4-10.2); CREATININE, SERUM 1.11 mg/dL (0.57-1.11); POTASSIUM 5.2 mmol/L (3.5-5.1)
[2021-06-02] MEDS: INSULIN LISPRO 100 UNIT/1 ML 3ML VIAL SQ SCH ×4 (08:00→21:54)
[2021-06-02] MEDS: PANTOPRAZOLE SOD 40 MG TABEC PO SCH (09:23)
[2021-06-02] MEDS: MAGNESIUM OXIDE 400 MG TAB PO SCH (09:23)
[2021-06-02] MEDS: DICYCLOMINE HCL 10 MG CAP PO SCH ×3 (09:23→21:49)
[2021-06-02] MEDS: PREDNISONE 20 MG TAB PO SCH (09:23)
[2021-06-02] MEDS: GABAPENTIN 300 MG CAP PO SCH ×3 (09:23→21:49)
[2021-06-02] MEDS: ASPIRIN 81 MG CHEW TAB PO SCH (09:23)
[2021-06-02] MEDS: FERROUS SULFATE 325 MG TAB PO SCH (09:23)
[2021-06-02] MEDS: LISINOPRIL 2.5 MG TAB PO SCH (09:26)
[2021-06-02] MEDS: Morphine 2mg Syringe 2 MG/ML SYR IV PRN ×2 (09:57→19:39)
[2021-06-02] MEDS: ENOXAPARIN SOD INJ 40 MG/0.4 ML SYR SC SCH (16:39)
[2021-06-02] MEDS ORDERED: DOCUSATE SODIUM 100 MG CAP PO PRN (17:30)
[2021-06-02] MEDS: SIMVASTATIN 40 MG TAB PO SCH (21:49)
[2021-06-03] MEDS: INSULIN LISPRO 100 UNIT/1 ML 3ML VIAL SQ SCH (07:30)
[2021-06-03 08:13] VITALS: BP 109/97
[2021-06-03 08:33] VITALS: BP 109/97
[2021-06-03] MEDS: PANTOPRAZOLE SOD 40 MG TABEC PO SCH (09:12)
[2021-06-03] MEDS: GABAPENTIN 300 MG CAP PO SCH (09:12)
[2021-06-03] MEDS: ASPIRIN 81 MG CHEW TAB PO SCH (09:12)
[2021-06-03] MEDS: PREDNISONE 20 MG TAB PO SCH (09:12)
[2021-06-03] MEDS: DICYCLOMINE HCL 10 MG CAP PO SCH (09:12)
[2021-06-03] MEDS: MAGNESIUM OXIDE 400 MG TAB PO SCH (09:12)
[2021-06-03] MEDS: FERROUS SULFATE 325 MG TAB PO SCH (09:12)
[2021-06-03] MEDS: LISINOPRIL 2.5 MG TAB PO SCH (09:25)
[2021-06-03] MEDS ORDERED: LACTULOSE SYRUP 20 GM/30 ML UDC PO ONE (10:00)
== END 2021-06-03 11:00 | disposition home or self-care (01) | DRG 488 ==
LOC: ER 11:35 → ERHOLD 12:56 → MED/SURG 15:33
PROVIDERS: ADMIT Internal Medicine; ATTEND Internal Medicine
PROC: 0SBD4ZZ Excision of Left Knee Joint, Percutaneous Endoscopic Approach (ICD-10-PCS; principal; 2021-05-30)
PROC: 0SBD4ZZ Excision of Left Knee Joint, Percutaneous Endoscopic Approach (ICD-10-PCS; 2021-05-30)
PROC: 0S9D4ZZ Drainage of Left Knee Joint, Percutaneous Endoscopic Approach (ICD-10-PCS; 2021-05-30)
DX: M94.262 Chondromalacia, left knee (principal); J18.9 Pneumonia, unspecified organism; M17.12 Unilateral primary osteoarthritis, left knee; M25.462 Effusion, left knee; G89.18 Other acute postprocedural pain; D72.829 Elevated white blood cell count, unspecified; T38.0X5A Adverse effect of glucocorticoids and synthetic analogues, initial encounter; D64.9 Anemia, unspecified; E11.65 Type 2 diabetes mellitus with hyperglycemia; E11.42 Type 2 diabetes mellitus with diabetic polyneuropathy; Z79.899 Other long term (current) drug therapy; E78.5 Hyperlipidemia, unspecified; I25.10 Atherosclerotic heart disease of native coronary artery without angina pectoris; E11.22 Type 2 diabetes mellitus with diabetic chronic kidney disease; I12.9 Hypertensive chronic kidney disease with stage 1 through stage 4 chronic kidney disease, or unspecified chronic kidney disease; N18.30 Chronic kidney disease, stage 3 unspecified; I48.91 Unspecified atrial fibrillation; Z79.01 Long term (current) use of anticoagulants
CPT/HCPCS: 36415; 71045; 80048; 80053; 82550; 82553; 82945; 82948; 84484; 85007; 85025; 85027; 85610; 85651; 85730; 86141; 86850; 86900; 87040; 87070; 87205; 89051; 89060; 93005; 94799; 96360; 96361; 96372; 97139; 99284; J0696; J1100; J1644; J1650; J2270; J2405; J2920; J3370; J7030; J7050; J7512; U0002

== ENCOUNTER → 2021-06-15 | Outpatient (CLI) | payer MEDICARE, OTHER ==
[~2021-06-15] MED LIST changes: +DICYCLOMINE HCL10 MG PO; +FERROUS SULFAT325 MG PO; +GLIPIZIDE5 MG PO; +LISINOPRIL5 MG PO; +MAGNESIUM OXID400 MG PO; +OMEPRAZOLE40 MG PO
== END ==
LOC: RAD 14:31
PROVIDERS: ATTEND Internal Medicine
DX: M79.89 Other specified soft tissue disorders (principal); R60.9 Edema, unspecified
CPT/HCPCS: 93971

== ENCOUNTER → 2021-08-20 | Outpatient (CLI) | payer MEDICARE, OTHER | LOC: DX 13:19 | PROVIDERS: ATTEND Internal Medicine | DX: M81.0 Age-related osteoporosis without current pathological fracture (principal) | CPT/HCPCS: 77080 ==

== ENCOUNTER → 2021-10-04 | Outpatient (CLI) | payer MEDICARE | LOC: RAD 08:30 | PROVIDERS: ATTEND Internal Medicine | DX: Z01.818 Encounter for other preprocedural examination (principal) | CPT/HCPCS: 71046 ==

== ENCOUNTER 2021-10-15 01:04 | Emergency (ER) | payer MEDICARE ==
[~2021-10-15] VITALS: Ht 139.7 cm; Wt 62.1 kg
[2021-10-15] MEDS ORDERED: KETOROLAC TROMETHAMINE 60 MG/2 ML VIAL IM ONE (01:30)
[2021-10-15 01:41] LABS: CLARITY,URINE CLEAR (CLEAR); COLOR,URINE YELLOW (YELLOW); KETONES,URINE NEGATIVE (NEGATIVE); LEUKOCYTE ESTERASE ,URINE NEGATIVE (NEGATIVE); NITRITE,URINE NEGATIVE (NEGATIVE); PROTEIN,URINE DIPSTICK NEGATIVE (NEGATIVE); URINE UROBILINOGEN 0.2 mg/dL (0.2 - 1)
[2021-10-15 01:45] LABS: BACTERIA,URINE FEW /HPF; EPITHELIAL CELLS,URINE FEW /LPF; RBC,URINE 0-5 /HPF (0-5); WBC,URINE (MAN) 0-5 /HPF (0-5)
[2021-10-15] MEDS ORDERED: Morphine 4mg Syringe 4 MG/ML INJ IM STA (02:52)
[2021-10-15] MEDS ORDERED: ACETAMINOPHEN-1 EAC4 PO (03:04)
== END 2021-10-15 03:41 | disposition home or self-care (01) ==
LOC: ER 01:20
DX: M54.50 Low back pain, unspecified (principal); I10 Essential (primary) hypertension; E78.00 Pure hypercholesterolemia, unspecified
CPT/HCPCS: 74176; 81001; 99283; J1885; J2270

== ENCOUNTER 2021-10-15 10:28 | Emergency (ER) | payer MEDICARE, OTHER ==
[~2021-10-15] VITALS: Ht 139.7 cm; Wt 62.1 kg
[~2021-10-15 10:28] MED LIST changes: +ACETAMINOPHEN-1 EAC4 PO
[2021-10-15] MEDS ORDERED: SODIUM CHLORIDE 0.9% 500ML 500 ML IV ONE (11:00)
[2021-10-15 11:18] LABS: BASOPHILS # (AUTO) 0.1 (0.0-0.1); BASOPHILS % 0.6 % (0.0-1.0); EOSINOPHILS # (AUTO) 0.1 (0.0-0.4); EOSINOPHILS % 1.4 % (0.0-6.0); HEMATOCRIT 34.7 % (34.2-44.1); HEMOGLOBIN 11.4 g/dL (12.0-16.0); LYMPHOCYTES # (AUTO) 1.6 (1.0-3.2); MEAN CORPUSCULAR HEMOGLOBIN 28.9 pg (28-32); MEAN CORPUSCULAR HGB CONC 32.9 g/dL (31-35); MEAN CORPUSCULAR VOLUME 87.8 fL (81-99); MONOCYTES # (AUTO) 0.7 (0.2-0.8); MONOCYTES % 8.8 % (4.4-11.3); NEUTROPHILS # (AUTO) 5.6 (2.1-6.9); NEUTROPHILS % 68.8 % (38.7-80.0); PLATELET COUNT 314 x10e3/uL (140-360); RED BLOOD COUNT 3.95 x10e6/uL (3.6-5.1); RED CELL DISTRIBUTION WIDTH 15.8 % (11.7-14.4)
[2021-10-15 11:25] LABS: CLARITY,URINE CLEAR (CLEAR); COLOR,URINE YELLOW (YELLOW); KETONES,URINE NEGATIVE (NEGATIVE); LEUKOCYTE ESTERASE ,URINE TRACE (NEGATIVE); NITRITE,URINE NEGATIVE (NEGATIVE); PROTEIN,URINE DIPSTICK NEGATIVE (NEGATIVE); URINE UROBILINOGEN 0.2 mg/dL (0.2 - 1)
[2021-10-15 11:28] LABS: INR 0.91; PROTHROMBIN TIME 13.1 seconds (11.9-14.5)
[2021-10-15 11:29] LABS: PARTIAL THROMBOPLASTIN TIME 26.4 seconds (23.8-35.5)
[2021-10-15 11:29] LABS: EPITHELIAL CELLS,URINE FEW /LPF; MUCUS,URINE FEW (RARE); WBC,URINE (MAN) 0-5 /HPF (0-5)
[2021-10-15 11:41] LABS: ALBUMIN 3.7 g/dL (3.5-5.0); ALBUMIN/GLOBULIN RATIO 1.3 (0.8-2.0); ANION GAP 13.2 mmol/L (8-16); CALCIUM 9.5 mg/dL (8.4-10.2); CREATININE, SERUM 1.09 mg/dL (0.57-1.11); MAGNESIUM 1.3 MG/DL (1.3-2.1); POTASSIUM 4.2 mmol/L (3.5-5.1)
[2021-10-15] MEDS ORDERED: ONDANSETRON HCL INJ 2MG/ML 2ML 2 MG/ML VIAL ONE (11:44)
[2021-10-15] MEDS ORDERED: ONDANSETRON HCL INJ 2MG/ML 2ML 2 MG/ML VIAL IV STA (11:47)
[2021-10-15 11:49] LABS: CREATINE KINASE MB 2.9 ng/mL (0-5.0)
[2021-10-15] MEDS ORDERED: NICARDIPINE 20MG/200ML PREMIX 200 ML IV SCH (12:00)
[2021-10-15] MEDS ORDERED: NICARDIPINE 20MG/200ML PREMIX 200 ML ONE (12:08)
[2021-10-15 12:17] VITALS: BP 159/69
== END 2021-10-15 12:22 | disposition other institution (70) ==
LOC: ER 10:32
DX: S06.5X9A Traumatic subdural hemorrhage with loss of consciousness of unspecified duration, initial encounter (principal); R55 Syncope and collapse; W19.XXXA Unspecified fall, initial encounter; Y93.01 Activity, walking, marching and hiking; Y92.008 Other place in unspecified non-institutional (private) residence as the place of occurrence of the external cause; I10 Essential (primary) hypertension; E11.65 Type 2 diabetes mellitus with hyperglycemia; E78.5 Hyperlipidemia, unspecified; K21.9 Gastro-esophageal reflux disease without esophagitis
CPT/HCPCS: 36415; 70450; 71045; 72125; 73090; 73110; 80053; 81001; 82550; 82553; 83735; 83880; 84484; 85025; 85610; 85730; 86850; 86900; 87086; 93005; 99284; J2405; J7040; U0002

== ENCOUNTER 2021-11-09 14:05 | Emergency (ER) | payer MEDICARE, OTHER ==
[~2021-11-09] VITALS: Ht 139.7 cm; Wt 62.1 kg
[2021-11-09 15:00] LABS: BASOPHILS # (AUTO) 0.1 (0.0-0.1); BASOPHILS % 0.5 % (0.0-1.0); EOSINOPHILS # (AUTO) 0.1 (0.0-0.4); EOSINOPHILS % 1.2 % (0.0-6.0); HEMATOCRIT 30.9 % (34.2-44.1); HEMOGLOBIN 10.1 g/dL (12.0-16.0); LYMPHOCYTES # (AUTO) 1.3 (1.0-3.2); LYMPHOCYTES % 13.9 % (18.0-39.1); MEAN CORPUSCULAR HEMOGLOBIN 30.1 pg (28-32); MEAN CORPUSCULAR HGB CONC 32.7 g/dL (31-35); MEAN CORPUSCULAR VOLUME 92.2 fL (81-99); MONOCYTES # (AUTO) 0.7 (0.2-0.8); MONOCYTES % 7.7 % (4.4-11.3); NEUTROPHILS # (AUTO) 7.1 (2.1-6.9); PLATELET COUNT 351 x10e3/uL (140-360); RED BLOOD COUNT 3.35 x10e6/uL (3.6-5.1); RED CELL DISTRIBUTION WIDTH 14.6 % (11.7-14.4)
[2021-11-09 15:10] LABS: INR 0.91; PROTHROMBIN TIME 13.1 seconds (11.9-14.5)
[2021-11-09 15:11] LABS: PARTIAL THROMBOPLASTIN TIME 27.7 seconds (23.8-35.5)
[2021-11-09 15:17] LABS: ANION GAP 14.1 mmol/L (8-16); CALCIUM 9.9 mg/dL (8.4-10.2); CREATININE, SERUM 1.08 mg/dL (0.57-1.11); POTASSIUM 4.1 mmol/L (3.5-5.1)
[2021-11-09 15:31] LABS: BILIRUBIN,DIRECT 0.2 mg/dL (0.0-0.5)
[2021-11-09] MEDS ORDERED: ONDANSETRON HCL INJ 2MG/ML 2ML 2 MG/ML VIAL IV STA (15:55)
== END 2021-11-09 19:00 | disposition short-term general hospital (02) ==
LOC: ER 14:08
DX: I69.351 Hemiplegia and hemiparesis following cerebral infarction affecting right dominant side (principal); E11.65 Type 2 diabetes mellitus with hyperglycemia; R11.2 Nausea with vomiting, unspecified; I10 Essential (primary) hypertension; E78.5 Hyperlipidemia, unspecified; E78.00 Pure hypercholesterolemia, unspecified; K21.9 Gastro-esophageal reflux disease without esophagitis
CPT/HCPCS: 36415; 70450; 71045; 80048; 80076; 84484; 85025; 85610; 85730; 93005; 99281; J2405; U0002

== ENCOUNTER 2024-08-08 09:41 | Inpatient (IN) | payer MEDICARE ==
[2024-08-08] VITALS (10 sets, daily range): BP systolic 142–147; BP diastolic 82–88; PULSE 79–96; RESP 18–22; TEMP 98.6–98.9; O2SAT 96–100
[~2024-08-08] VITALS: Ht 139.7 cm; Wt 49.0 kg
[~2024-08-08 09:41] MED LIST changes: +ANTIVERT25 M1 PO; +CARAFATE1 GM PO; +FIORICET 50-301 EACH PO; +NAPROXEN250 MG PO; +ONDANSETRON ODT4 MG SL
[2024-08-08 10:28] LABS: BASOPHILS % 0.4 % (0.0-1.0); EOSINOPHILS # (AUTO) 0.1 (0.0-0.4); EOSINOPHILS % 1.5 % (0.0-6.0); HEMATOCRIT 39.6 % (34.2-44.1); HEMOGLOBIN 12.5 g/dL (12.0-16.0); LYMPHOCYTES # (AUTO) 0.6 (1.0-3.2); LYMPHOCYTES % 13.1 % (18.0-39.1); MEAN CORPUSCULAR HEMOGLOBIN 31.6 pg (28-32); MEAN CORPUSCULAR HGB CONC 31.6 g/dL (31-35); MONOCYTES # (AUTO) 0.5 (0.2-0.8); MONOCYTES % 11.6 % (4.4-11.3); NEUTROPHILS # (AUTO) 3.4 (2.1-6.9); PLATELET COUNT 186 x10e3/uL (140-360); RED BLOOD COUNT 3.96 x10e6/uL (3.6-5.1); RED CELL DISTRIBUTION WIDTH 13.2 % (11.7-14.4); WHITE BLOOD COUNT 4.66 x10e3/uL (4.8-10.8)
[2024-08-08] MEDS: ALBUTEROL/IPRATROPIUM 3 ML NEB NEB ONE (10:28)
[2024-08-08] MEDS: SODIUM CHLORIDE 0.9% 500ML 500 ML IV ONE (10:38)
[2024-08-08 10:44] LABS: INFLUENZA A AG NEGATIVE (NEGATIVE)
[2024-08-08 10:45] LABS: CORONAVIRUS COVID-19 AG NEGATIVE (NEGATIVE); INFLUENZA B AG NEGATIVE (NEGATIVE)
[2024-08-08 10:50] LABS: ALBUMIN 3.6 g/dL (3.5-5.0); ALBUMIN/GLOBULIN RATIO 1.3 (0.8-2.0); ANION GAP 16.7 mmol/L (8-16); BILIRUBIN,TOTAL 0.5 mg/dL (0.2-1.2); CALCIUM 9.8 mg/dL (8.4-10.2); CREATININE, SERUM 1.23 mg/dL (0.57-1.11); MAGNESIUM 1.3 MG/DL (1.3-2.1); POTASSIUM 3.7 mmol/L (3.5-5.1); TOTAL PROTEIN 6.4 g/dL (6.5-8.1)
[2024-08-08 10:56] LABS: TROPONIN I 0.006 ng/mL (0-0.300)
[2024-08-08 11:27] LABS: INR 0.87; PROTHROMBIN TIME 12.4 seconds (11.9-14.5)
[2024-08-08 11:28] LABS: PARTIAL THROMBOPLASTIN TIME 31.6 seconds (23.8-35.5)
[2024-08-08] MEDS ORDERED: METFORMIN HCL500 MG PO (11:52)
[2024-08-08] MEDS ORDERED: ACETAMINOPHEN325 M1 PO (11:52)
[2024-08-08] MEDS ORDERED: CARAFATE1 GM/10 ML PO (11:52)
[2024-08-08] MEDS ORDERED: MECLIZINE HCL12.5 MG PO (11:52)
[2024-08-08] MEDS ORDERED: PROTONIX20 MG PO (11:52)
[2024-08-08] MEDS: SODIUM CHLORIDE 0.9% 1000ML 1,000 ML IV SCH (13:31)
[2024-08-08] MEDS: ALBUTEROL/IPRATROPIUM 3 ML NEB NEB SCH ×2 (14:39→19:06)
[2024-08-08] MEDS ORDERED: BENZONATATE 100 MG CAP PO PRN (15:30)
[2024-08-08] MEDS: METHYLPREDNISOLONE SOD SUCC 40 MG/ML VIAL 1ML IV SCH (16:38)
[2024-08-08] MEDS: ACETAMINOPHEN 325 MG TAB PO PRN (23:02)
[2024-08-09] VITALS (11 sets, daily range): BP systolic 108–146; BP diastolic 61–78; PULSE 53–107; RESP 16–21; TEMP 97.5–98.3; O2SAT 96–100
[2024-08-09 06:23] LABS: HEMATOCRIT 31.4 % (34.2-44.1); HEMOGLOBIN 10.8 g/dL (12.0-16.0); LYMPHOCYTES # (AUTO) 0.5 (1.0-3.2); LYMPHOCYTES % 9.5 % (18.0-39.1); MEAN CORPUSCULAR HGB CONC 34.4 g/dL (31-35); MEAN CORPUSCULAR VOLUME 92.9 fL (81-99); MONOCYTES # (AUTO) 0.1 (0.2-0.8); MONOCYTES % 2.3 % (4.4-11.3); NEUTROPHILS # (AUTO) 4.2 (2.1-6.9); NEUTROPHILS % 87.6 % (38.7-80.0); PLATELET COUNT 182 x10e3/uL (140-360); RED BLOOD COUNT 3.38 x10e6/uL (3.6-5.1); RED CELL DISTRIBUTION WIDTH 13.2 % (11.7-14.4); WHITE BLOOD COUNT 4.82 x10e3/uL (4.8-10.8)
[2024-08-09 06:49] LABS: ALBUMIN 3.1 g/dL (3.5-5.0); ALBUMIN/GLOBULIN RATIO 1.1 (0.8-2.0); ALKALINE PHOSPHATASE 65 IU/L (40-150); BILIRUBIN,TOTAL 0.4 mg/dL (0.2-1.2); BLOOD UREA NITROGEN 18 mg/dL (7-26); BUN/CREATININE RATIO 23 (6-25); CALCIUM 8.6 mg/dL (8.4-10.2); CARBON DIOXIDE 19 mmol/L (22-29); CHLORIDE 110 mmol/L (98-107); CREATININE, SERUM 0.78 mg/dL (0.57-1.11); EST GLOMERULAR FILTRATION RATE 73 ML/MIN (>=60); GLUCOSE 234 mg/dL (74-118); SODIUM 141 mmol/L (136-145); TOTAL PROTEIN 5.8 g/dL (6.5-8.1)
[2024-08-09 06:51] LABS: ALANINE AMINOTRANSFERASE < 6 IU/L (0-55)
[2024-08-09 07:19] LABS: TROPONIN I 0.02 ng/mL (0-0.300)
[2024-08-09] MEDS: PANTOPRAZOLE SOD 40 MG TABEC PO SCH (09:46)
[2024-08-09] MEDS ORDERED: IOPAMIDOL 370 MG/ML 100 ML INFUS..BTL INJ ONE (10:53)
[2024-08-09] MEDS ORDERED: DEXTROSE 50% SYRINGE 50 ML IV PRN (13:15)
[2024-08-09 13:19] LABS: TROPONIN I 0.012 ng/mL (0-0.300)
[2024-08-09] MEDS ORDERED: DOCUSATE SODIUM 100 MG CAP PO PRN (13:30)
[2024-08-09] MEDS ORDERED: ONDANSETRON HCL INJ 2MG/ML 2ML 2 MG/ML VIAL IV PRN (13:30)
[2024-08-09] MEDS ORDERED: ALBUTEROL/IPRATROPIUM 3 ML NEB NEB PRN (13:30)
[2024-08-09] MEDS ORDERED: SIMETHICONE 80 MG CHEW PO PRN (13:30)
[2024-08-09] MEDS ORDERED: MELATONIN 3 MG TAB PO PRN (13:30)
[2024-08-09] MEDS: INSULIN LISPRO 100 UNIT/1 ML 3ML VIAL SQ SCH (13:57)
[2024-08-09] MEDS: ENOXAPARIN SOD INJ 40 MG/0.4 ML SYR SC SCH (17:02)
[2024-08-09] MEDS: GUAIFENESIN/DEXTROMETHORPHAN LIQD 5 ML UDC PO PRN (19:44)
[2024-08-10] VITALS (13 sets, daily range): BP systolic 100–138; BP diastolic 57–92; PULSE 72–93; RESP 18–21; TEMP 97.5–98.4; O2SAT 96–100
[2024-08-10 06:08] LABS: EOSINOPHILS % 0.1 % (0.0-6.0); HEMATOCRIT 28.3 % (34.2-44.1); HEMOGLOBIN 9.7 g/dL (12.0-16.0); LYMPHOCYTES # (AUTO) 0.6 (1.0-3.2); LYMPHOCYTES % 8.5 % (18.0-39.1); MEAN CORPUSCULAR HEMOGLOBIN 31.9 pg (28-32); MEAN CORPUSCULAR HGB CONC 34.3 g/dL (31-35); MEAN CORPUSCULAR VOLUME 93.1 fL (81-99); MONOCYTES # (AUTO) 0.5 (0.2-0.8); MONOCYTES % 7.4 % (4.4-11.3); NEUTROPHILS # (AUTO) 5.8 (2.1-6.9); NEUTROPHILS % 83.1 % (38.7-80.0); PLATELET COUNT 195 x10e3/uL (140-360); RED BLOOD COUNT 3.04 x10e6/uL (3.6-5.1); RED CELL DISTRIBUTION WIDTH 13.4 % (11.7-14.4); WHITE BLOOD COUNT 6.92 x10e3/uL (4.8-10.8)
[2024-08-10 06:40] LABS: ALBUMIN/GLOBULIN RATIO 1.4 (0.8-2.0); ANION GAP 14.5 mmol/L (8-16); BILIRUBIN,TOTAL 0.3 mg/dL (0.2-1.2); CALCIUM 8.5 mg/dL (8.4-10.2); CREATININE, SERUM 0.81 mg/dL (0.57-1.11); POTASSIUM 3.5 mmol/L (3.5-5.1); TOTAL PROTEIN 5.1 g/dL (6.5-8.1)
[2024-08-10] MEDS: LORATADINE 10 MG TAB PO SCH (08:41)
[2024-08-10] MEDS: METHYLPREDNISOLONE SOD SUCC 40 MG/ML VIAL 1ML IV SCH (08:41)
[2024-08-10] MEDS: ACETAMINOPHEN 325 MG TAB PO PRN (08:44)
[2024-08-10] MEDS ORDERED: HYDROCODONE/APAP 5MG-325MG TAB PO PRN (09:30)
[2024-08-11] VITALS (11 sets, daily range): BP systolic 115–143; BP diastolic 78–85; PULSE 69–97; RESP 17–21; TEMP 97.9–98.2; O2SAT 95–100
[2024-08-11 06:55] LABS: ANION GAP 13.8 mmol/L (8-16); CALCIUM 9.2 mg/dL (8.4-10.2); CREATININE, SERUM 0.79 mg/dL (0.57-1.11); POTASSIUM 3.8 mmol/L (3.5-5.1)
[2024-08-11] MEDS: SUCRALFATE 1 GM/10 ML SUSP PO SCH (16:53)
[2024-08-11] MEDS: GABAPENTIN 100 MG CAP PO SCH (20:48)
[2024-08-11] MEDS: INSULIN GLARGINE 100 UNITS/ML VIAL SQ SCH (20:56)
[2024-08-12] VITALS (12 sets, daily range): BP systolic 116–151; BP diastolic 71–88; PULSE 66–111; RESP 16–20; TEMP 97.6–98.6; O2SAT 97–100
[2024-08-12 05:46] LABS: BASOPHILS % 0.1 % (0.0-1.0); EOSINOPHILS % 0.1 % (0.0-6.0); HEMATOCRIT 30.1 % (34.2-44.1); HEMOGLOBIN 10.3 g/dL (12.0-16.0); LYMPHOCYTES # (AUTO) 0.6 (1.0-3.2); LYMPHOCYTES % 7.5 % (18.0-39.1); MEAN CORPUSCULAR HEMOGLOBIN 31.7 pg (28-32); MEAN CORPUSCULAR HGB CONC 34.2 g/dL (31-35); MEAN CORPUSCULAR VOLUME 92.6 fL (81-99); MONOCYTES # (AUTO) 0.6 (0.2-0.8); MONOCYTES % 8.1 % (4.4-11.3); NEUTROPHILS # (AUTO) 6.1 (2.1-6.9); NEUTROPHILS % 79.9 % (38.7-80.0); PLATELET COUNT 222 x10e3/uL (140-360); RED BLOOD COUNT 3.25 x10e6/uL (3.6-5.1); RED CELL DISTRIBUTION WIDTH 13.2 % (11.7-14.4); WHITE BLOOD COUNT 7.62 x10e3/uL (4.8-10.8)
[2024-08-12 06:35] LABS: ANION GAP 13.9 mmol/L (8-16); CALCIUM 9.1 mg/dL (8.4-10.2); CREATININE, SERUM 0.79 mg/dL (0.57-1.11); POTASSIUM 3.9 mmol/L (3.5-5.1)
[2024-08-12] MEDS: MECLIZINE HCL 12.5 MG TAB PO SCH (08:52)
[2024-08-12] MEDS ORDERED: METHYLPREDNISOLONE SOD SUCC 40 MG/ML VIAL 1ML IV SCH (09:00)
[2024-08-12] MEDS: METHYLPREDNISOLONE SOD SUCC 125 MG/2ML VIAL IV STA (09:23)
[2024-08-12] MEDS: METHYLPREDNISOLONE SOD SUCC 40 MG/ML VIAL 1ML IV ONE (09:45)
[2024-08-12] MEDS ORDERED: BENZONATATE 100 MG CAP PO PRN (10:00)
[2024-08-12] MEDS: GUAIFENESIN 600 MG TAB PO SCH (11:41)
[2024-08-12] MEDS: BENZONATATE 100 MG CAP PO SCH (11:42)
[2024-08-13] VITALS (11 sets, daily range): BP systolic 101–156; BP diastolic 60–93; PULSE 76–116; RESP 16–19; TEMP 97.9–98.6; O2SAT 95–100
[2024-08-13] MEDS ORDERED: LISINOPRIL10 MG PO (09:39)
[2024-08-14] VITALS (8 sets, daily range): BP systolic 108–158; BP diastolic 52–79; PULSE 71–85; RESP 15–20; TEMP 97.4–99; O2SAT 94–98
[2024-08-14 06:59] LABS: BASOPHILS # (AUTO) 0.1 (0.0-0.1); BASOPHILS % 0.7 % (0.0-1.0); EOSINOPHILS # (AUTO) 0.1 (0.0-0.4); EOSINOPHILS % 1.8 % (0.0-6.0); HEMATOCRIT 33.1 % (34.2-44.1); HEMOGLOBIN 10.6 g/dL (12.0-16.0); LYMPHOCYTES # (AUTO) 0.8 (1.0-3.2); LYMPHOCYTES % 9.9 % (18.0-39.1); MEAN CORPUSCULAR HEMOGLOBIN 31.5 pg (28-32); MEAN CORPUSCULAR VOLUME 98.5 fL (81-99); MONOCYTES # (AUTO) 0.8 (0.2-0.8); MONOCYTES % 9.9 % (4.4-11.3); NEUTROPHILS # (AUTO) 5.3 (2.1-6.9); NEUTROPHILS % 69.7 % (38.7-80.0); PLATELET COUNT 246 x10e3/uL (140-360); RED BLOOD COUNT 3.36 x10e6/uL (3.6-5.1); RED CELL DISTRIBUTION WIDTH 13.1 % (11.7-14.4); WHITE BLOOD COUNT 7.61 x10e3/uL (4.8-10.8)
[2024-08-14 07:44] LABS: ANION GAP 12.4 mmol/L (8-16); CALCIUM 9.5 mg/dL (8.4-10.2); CREATININE, SERUM 0.75 mg/dL (0.57-1.11)
[2024-08-14 07:50] LABS: POTASSIUM 3.4 mmol/L (3.5-5.1)
== END 2024-08-14 13:25 | disposition home or self-care (01) | DRG 871 ==
LOC: ER 09:48 → ERHOLD 11:39 → MED/SURG3 14:15
PROVIDERS: ADMIT Internal Medicine; ATTEND Internal Medicine
DX: A41.9 Sepsis, unspecified organism (principal); J18.1 Lobar pneumonia, unspecified organism; J96.01 Acute respiratory failure with hypoxia; J47.0 Bronchiectasis with acute lower respiratory infection; J47.1 Bronchiectasis with (acute) exacerbation; N17.9 Acute kidney failure, unspecified; E87.20 Acidosis, unspecified; M84.48XA Pathological fracture, other site, initial encounter for fracture; R65.20 Severe sepsis without septic shock; E11.22 Type 2 diabetes mellitus with diabetic chronic kidney disease; I12.9 Hypertensive chronic kidney disease with stage 1 through stage 4 chronic kidney disease, or unspecified chronic kidney disease; Z99.81 Dependence on supplemental oxygen; N18.9 Chronic kidney disease, unspecified; E78.5 Hyperlipidemia, unspecified; E11.42 Type 2 diabetes mellitus with diabetic polyneuropathy; Z79.84 Long term (current) use of oral hypoglycemic drugs; E86.0 Dehydration; M19.91 Primary osteoarthritis, unspecified site; K21.9 Gastro-esophageal reflux disease without esophagitis; I49.1 Atrial premature depolarization; G89.29 Other chronic pain; Z79.899 Other long term (current) drug therapy; R53.1 Weakness; D64.9 Anemia, unspecified; I25.10 Atherosclerotic heart disease of native coronary artery without angina pectoris; K82.8 Other specified diseases of gallbladder; R68.84 Jaw pain; R13.12 Dysphagia, oropharyngeal phase; R53.81 Other malaise; R10.11 Right upper quadrant pain; M54.6 Pain in thoracic spine; I65.21 Occlusion and stenosis of right carotid artery; Z95.820 Peripheral vascular angioplasty status with implants and grafts; X58.XXXA Exposure to other specified factors, initial encounter; Z11.52 Encounter for screening for COVID-19; Z74.01 Bed confinement status; Z87.820 Personal history of traumatic brain injury; Z79.82 Long term (current) use of aspirin
CPT/HCPCS: 36415; 70491; 71045; 71250; 74230; 76700; 80048; 80053; 82550; 82948; 83036; 83735; 83880; 84484; 85025; 85610; 85730; 87040; 93005; 94640; 94760; 94799; 99284; J0696; J1650; J2919; J7030; J7040; J7050; Q9967

== ENCOUNTER 2024-10-03 16:33 | Emergency (ER) | payer MEDICARE ==
[~2024-10-03] VITALS: Ht 139.7 cm; Wt 49.0 kg
[~2024-10-03 16:33] MED LIST changes: +ACETAMINOPHEN325 M1 PO; +CARAFATE1 GM/10 ML PO; +LISINOPRIL10 MG PO; +MECLIZINE HCL12.5 MG PO; +METFORMIN HCL500 MG PO; +PROTONIX20 MG PO
[2024-10-03 17:08] LABS: BASOPHILS # (AUTO) 0.1 (0.0-0.1); BASOPHILS % 0.8 % (0.0-1.0); EOSINOPHILS # (AUTO) 0.2 (0.0-0.4); EOSINOPHILS % 3.4 % (0.0-6.0); HEMATOCRIT 40.3 % (34.2-44.1); HEMOGLOBIN 13.6 g/dL (12.0-16.0); LYMPHOCYTES # (AUTO) 1.7 (1.0-3.2); LYMPHOCYTES % 25.4 % (18.0-39.1); MEAN CORPUSCULAR HEMOGLOBIN 32.5 pg (28-32); MEAN CORPUSCULAR HGB CONC 33.7 g/dL (31-35); MEAN CORPUSCULAR VOLUME 96.4 fL (81-99); MONOCYTES # (AUTO) 0.6 (0.2-0.8); MONOCYTES % 8.6 % (4.4-11.3); NEUTROPHILS % 61.5 % (38.7-80.0); PLATELET COUNT 274 x10e3/uL (140-360); RED BLOOD COUNT 4.18 x10e6/uL (3.6-5.1); RED CELL DISTRIBUTION WIDTH 12.9 % (11.7-14.4)
[2024-10-03 17:19] VITALS: TEMP 98.5
[2024-10-03 17:30] LABS: ALBUMIN 4.1 g/dL (3.5-5.0); ALBUMIN/GLOBULIN RATIO 1.4 (0.8-2.0); BILIRUBIN,TOTAL 0.6 mg/dL (0.2-1.2); CALCIUM 9.5 mg/dL (8.4-10.2); CREATININE, SERUM 1.06 mg/dL (0.57-1.11); MAGNESIUM 1.3 MG/DL (1.3-2.1); TOTAL PROTEIN 7.1 g/dL (6.5-8.1)
[2024-10-03 17:34] LABS: BILIRUBIN,URINE NEGATIVE (NEGATIVE); CLARITY,URINE CLEAR (CLEAR); COLOR,URINE YELLOW (YELLOW); GLUCOSE, URINE 2+ (NEGATIVE); KETONES,URINE NEGATIVE (NEGATIVE); LEUKOCYTE ESTERASE ,URINE NEGATIVE (NEGATIVE); NITRITE,URINE NEGATIVE (NEGATIVE); PH,URINE 6 (5 - 7); PROTEIN,URINE DIPSTICK 1+ (NEGATIVE); URINE UROBILINOGEN 0.2 mg/dL (0.2 - 1)
[2024-10-03 17:36] LABS: TROPONIN I 0.015 ng/mL (0-0.300)
[2024-10-03 17:37] LABS: INR 0.88; PARTIAL THROMBOPLASTIN TIME 30.3 seconds (23.8-35.5); PROTHROMBIN TIME 12.5 seconds (11.9-14.5)
[2024-10-03] MEDS: SODIUM CHLORIDE 0.9% 1000ML 1,000 ML IV STA (17:38)
[2024-10-03 17:48] LABS: BACTERIA,URINE FEW /HPF; EPITHELIAL CELLS,URINE FEW /LPF; RBC,URINE 0-5 /HPF (0-5); RENAL EPITHELIAL CELLS,URINE FEW; TRANSITIONAL EPI CELLS,URINE RARE
[2024-10-03 18:53] VITALS: PULSE 71; RESP 18; O2SAT 97
[2024-10-03 19:12] VITALS: TEMP 98.7
== END 2024-10-03 19:14 | disposition home or self-care (01) ==
LOC: ER 17:01
DX: F41.9 Anxiety disorder, unspecified (principal); G89.29 Other chronic pain; I10 Essential (primary) hypertension; E11.65 Type 2 diabetes mellitus with hyperglycemia; I25.10 Atherosclerotic heart disease of native coronary artery without angina pectoris; E78.5 Hyperlipidemia, unspecified; M54.9 Dorsalgia, unspecified; F32.A Depression, unspecified; Z87.820 Personal history of traumatic brain injury
CPT/HCPCS: 36415; 70450; 71045; 80053; 81001; 82140; 82550; 83735; 84484; 85025; 85610; 85730; 87086; 93005; 99284; J7030; 51700